=== PATIENT | female | born 1970 ===

== ENCOUNTER 2019-10-17 13:42 | Inpatient (IN) ==
[2019-10-17] MEDS ORDERED: PIPERACILLIN/TAZOBACTAM 3,375 MG in SODIUM CHLORIDE 0.9% 100 ML IV STA (14:24)
[2019-10-17] MEDS ORDERED: ONDANSETRON 4 MG/2 ML VIAL IV PRN (14:31)
[2019-10-17] MEDS ORDERED: GLUCAGON 1 MG VIAL IM PRN (14:34)
[2019-10-17] MEDS ORDERED: DEXTROSE 10% 250 ML BAG IV PRN (14:34)
[2019-10-17] MEDS: INSULIN LISPRO 100 UNIT/ML SUBCUT SCH ×2 (16:30→21:17)
[2019-10-17] MEDS: LACTATED RINGERS 1,000 ML IV SCH (18:28)
[2019-10-17] MEDS: PIPERACILLIN/TAZOBACTAM 3,375 MG in SODIUM CHLORIDE 0.9% 100 ML IV SCH (21:15)
[2019-10-18 06:34] LABS: Basophils % 0.2 % (0.0-0.8); Eosinophils # 0.2 10*3/uL (0.0-0.87); Eosinophils % 1.2 % (0.00-10.9); Hematocrit 34.5 VOL% (35.7-47.0); Immature Granulocytes % 0.8 %; Immature Granulocytes Absolute 0.14 #; Lymphocytes # 1.5 10*3/uL (1.4-4.0); Lymphocytes % 8.6 % (21.3-54.2); Mean Corpuscular HGB Conc 31.9 GM/DL (32-36); Mean Corpuscular Volume 87.1 FL (87-102); Mean Platelet Volume 9.6 FL (9.6-12.0); Monocytes % 7.2 % (1.7-12.7); Platelet Count 374 T/CUMM (130-400); Red Blood Count 3.96 MC/CUMM (3.8-5.5); White Blood Count 17.3 T/CUMM (4-12)
[2019-10-18] MEDS: LACTATED RINGERS 1,000 ML IV SCH ×2 (06:39→16:46)
[2019-10-18] MEDS: PIPERACILLIN/TAZOBACTAM 3,375 MG in SODIUM CHLORIDE 0.9% 100 ML IV SCH ×2 (06:39→17:13)
[2019-10-18] MEDS: INSULIN LISPRO 100 UNIT/ML SUBCUT SCH ×4 (08:29→20:51)
[2019-10-18] MEDS ORDERED: LIDOCAINE 1%/EPI INJ 20 ML VIAL ONE (08:46)
[2019-10-18] MEDS ORDERED: BUPIVACAINE MPF 0.25% 30 ML VIAL ONE (08:46)
[2019-10-18] MEDS ORDERED: TISSUE ADHESIVE 1 EACH APPLICATOR TOP ONE (08:46)
[2019-10-18 09:43] LABS: Calcium 9.5 MG/DL (8.5-10.1); Osmolality,Calculated 272.8 MOS/KG (273-304)
[2019-10-18] MEDS: ENOXAPARIN 40 MG/0.4 ML SYRINGE SUBCUT SCH (12:40)
[2019-10-18] MEDS: PIOGLITAZONE 15 MG TABLET PO SCH (14:25)
[2019-10-18] MEDS ORDERED: SUGAMMADEX 200 MG/2 ML VIAL IV ONE ×2 (15:08→15:09)
[2019-10-18] MEDS ORDERED: ACETAMINOPHEN 1,000 MG/100 ML VIAL IV ONE (15:27)
[2019-10-18] MEDS ORDERED: ONDANSETRON 4 MG/2 ML VIAL ONE (15:34)
[2019-10-18] MEDS ORDERED: HYDROmorphone 2 MG/1 ML VIAL ONE (15:34)
[2019-10-18] MEDS: HYDROmorphone 2 MG/1 ML VIAL IV PRN ×4 (15:35→22:32)
[2019-10-18] MEDS ORDERED: SEVOFLURANE 1 UNIT/15 MINUTE INH ONE (15:41)
[2019-10-18] MEDS ORDERED: PROPOFOL 200 MG/20 ML VIAL IV ONE (15:41)
[2019-10-18] MEDS ORDERED: MIDAZOLAM 2 MG/2 ML VIAL ONE (15:41)
[2019-10-18] MEDS ORDERED: LIDOCAINE 2% 5 ML VIAL ONE (15:41)
[2019-10-18] MEDS ORDERED: fentaNYL 100 MCG/2 ML VIAL ONE (15:42)
[2019-10-18] MEDS ORDERED: SUCCINYLCHOLINE 200 MG/10 ML VIAL ONE (15:42)
[2019-10-18] MEDS ORDERED: ROCURONIUM 100 MG/10 ML VIAL IV ONE (15:42)
[2019-10-18] MEDS ORDERED: LACTATED RINGERS 1,000 ML IV ONE (15:42)
[2019-10-18] MEDS ORDERED: ONDANSETRON 4 MG/2 ML VIAL IV PRN (16:07)
[2019-10-18 16:42] LABS: Hematocrit 32.8 VOL% (35.7-47.0); Hemoglobin 10.4 GM/DL (12.0-16.0)
[2019-10-18] MEDS: ASPIRIN EC 81 MG TABLET PO SCH (17:41)
[2019-10-18] MEDS: LISINOPRIL 20 MG TABLET PO SCH (17:42)
[2019-10-18] MEDS: METOPROLOL SUCCINATE XL 50 MG TABLET PO SCH (17:42)
[2019-10-18] MEDS: CHLORTHALIDONE 25 MG TABLET PO SCH (17:42)
[2019-10-18] MEDS: amLODIPine 10 MG TABLET PO SCH (17:43)
[2019-10-18] MEDS: SIMVASTATIN 10 MG TABLET PO SCH (20:42)
[2019-10-18 23:31] LABS: Hematocrit 33.2 VOL% (35.7-47.0); Hemoglobin 10.4 GM/DL (12.0-16.0)
[2019-10-19] MEDS: PIPERACILLIN/TAZOBACTAM 3,375 MG in SODIUM CHLORIDE 0.9% 100 ML IV SCH ×3 (01:06→18:37)
[2019-10-19] MEDS: HYDROmorphone 2 MG/1 ML VIAL IV PRN (03:28)
[2019-10-19 05:45] LABS: Basophils % 0.2 % (0.0-0.8); Eosinophils % 0.1 % (0.00-10.9); Hematocrit 33.9 VOL% (35.7-47.0); Hemoglobin 10.7 GM/DL (12.0-16.0); Lymphocytes # 1.4 10*3/uL (1.4-4.0); Mean Corpuscular HGB Conc 31.6 GM/DL (32-36); Mean Corpuscular Volume 88.1 FL (87-102); Mean Platelet Volume 9.4 FL (9.6-12.0); Monocytes % 10.4 % (1.7-12.7); Neutrophils % 81.3 % (38.7-73.9); Platelet Count 389 T/CUMM (130-400); Red Blood Count 3.85 MC/CUMM (3.8-5.5); Red Cell Distribution Width 14.2 % (9.3-17.3); White Blood Count 19.7 T/CUMM (4-12)
[2019-10-19 06:24] LABS: Albumin 2.8 G/DL (3.4-5.0); Bilirubin,Total 1.3 MG/DL (0.2-1.0); Calcium 8.8 MG/DL (8.5-10.1); Osmolality,Calculated 274.1 MOS/KG (273-304); Total Protein 7.9 G/DL (6.4-8.3)
[2019-10-19] MEDS: LACTATED RINGERS 1,000 ML IV SCH ×3 (06:26→21:04)
[2019-10-19] MEDS: ENOXAPARIN 40 MG/0.4 ML SYRINGE SUBCUT SCH (09:54)
[2019-10-19] MEDS: PANTOPRAZOLE 40 MG TABLET PO SCH (09:55)
[2019-10-19] MEDS: METOPROLOL SUCCINATE XL 50 MG TABLET PO SCH (09:55)
[2019-10-19] MEDS: PIOGLITAZONE 15 MG TABLET PO SCH (09:55)
[2019-10-19] MEDS: ASPIRIN EC 81 MG TABLET PO SCH (09:55)
[2019-10-19] MEDS: CHLORTHALIDONE 25 MG TABLET PO SCH (09:55)
[2019-10-19] MEDS: amLODIPine 10 MG TABLET PO SCH (10:40)
[2019-10-19] MEDS: INSULIN LISPRO 100 UNIT/ML SUBCUT SCH ×4 (10:40→23:56)
[2019-10-19] MEDS: LISINOPRIL 20 MG TABLET PO SCH (18:37)
[2019-10-19] MEDS: SIMVASTATIN 10 MG TABLET PO SCH (21:04)
[2019-10-20] MEDS: PIPERACILLIN/TAZOBACTAM 3,375 MG in SODIUM CHLORIDE 0.9% 100 ML IV SCH ×2 (00:13→09:56)
[2019-10-20] MEDS: INSULIN LISPRO 100 UNIT/ML SUBCUT SCH ×4 (07:51→23:20)
[2019-10-20] MEDS: PIOGLITAZONE 15 MG TABLET PO SCH (08:42)
[2019-10-20] MEDS: CHLORTHALIDONE 25 MG TABLET PO SCH (08:42)
[2019-10-20] MEDS: ASPIRIN EC 81 MG TABLET PO SCH (08:42)
[2019-10-20] MEDS: LISINOPRIL 20 MG TABLET PO SCH (08:42)
[2019-10-20] MEDS: ENOXAPARIN 40 MG/0.4 ML SYRINGE SUBCUT SCH (08:42)
[2019-10-20] MEDS: METOPROLOL SUCCINATE XL 50 MG TABLET PO SCH (08:43)
[2019-10-20] MEDS: PANTOPRAZOLE 40 MG TABLET PO SCH (08:43)
[2019-10-20] MEDS: amLODIPine 10 MG TABLET PO SCH (08:43)
[2019-10-20] MEDS: HYDROmorphone 2 MG/1 ML VIAL IV PRN (11:03)
[2019-10-20] MEDS: CIPROFLOXACIN INJ 400 MG in PREMIX 1 EACH IV SCH (14:38)
[2019-10-20] MEDS: LACTATED RINGERS 1,000 ML IV SCH (14:38)
[2019-10-20] MEDS: SIMVASTATIN 10 MG TABLET PO SCH (20:34)
[2019-10-21] MEDS: CIPROFLOXACIN INJ 400 MG in PREMIX 1 EACH IV SCH ×2 (01:41→14:00)
[2019-10-21] MEDS: LACTATED RINGERS 1,000 ML IV SCH ×3 (05:50→18:54)
[2019-10-21] MEDS: INSULIN LISPRO 100 UNIT/ML SUBCUT SCH ×4 (07:17→20:53)
[2019-10-21] MEDS: ENOXAPARIN 40 MG/0.4 ML SYRINGE SUBCUT SCH (07:27)
[2019-10-21] MEDS ORDERED: SUGAMMADEX 200 MG/2 ML VIAL IV ONE (09:33)
[2019-10-21] MEDS ORDERED: PROPOFOL 200 MG/20 ML VIAL IV ONE (09:51)
[2019-10-21] MEDS ORDERED: SEVOFLURANE 1 UNIT/15 MINUTE INH ONE (09:51)
[2019-10-21] MEDS ORDERED: LIDOCAINE 2% 5 ML VIAL ONE (09:51)
[2019-10-21] MEDS ORDERED: ROCURONIUM 100 MG/10 ML VIAL IV ONE (09:52)
[2019-10-21] MEDS ORDERED: MIDAZOLAM 2 MG/2 ML VIAL ONE (09:52)
[2019-10-21] MEDS ORDERED: ONDANSETRON 4 MG/2 ML VIAL ONE (09:52)
[2019-10-21] MEDS ORDERED: fentaNYL 100 MCG/2 ML VIAL ONE (09:52)
[2019-10-21] MEDS ORDERED: SUCCINYLCHOLINE 200 MG/10 ML VIAL ONE (09:52)
[2019-10-21] MEDS ORDERED: DEXAMETHASONE 4 MG/1 ML VIAL ONE (09:52)
[2019-10-21] MEDS ORDERED: HYDROmorphone 2 MG/1 ML VIAL IV PRN (10:10)
[2019-10-21] MEDS ORDERED: ONDANSETRON 4 MG/2 ML VIAL IV PRN (10:10)
[2019-10-21] MEDS: PIOGLITAZONE 15 MG TABLET PO SCH (11:21)
[2019-10-21] MEDS: amLODIPine 10 MG TABLET PO SCH (11:21)
[2019-10-21] MEDS: ASPIRIN EC 81 MG TABLET PO SCH (11:21)
[2019-10-21] MEDS: LISINOPRIL 20 MG TABLET PO SCH (11:21)
[2019-10-21] MEDS: METOPROLOL SUCCINATE XL 50 MG TABLET PO SCH (11:22)
[2019-10-21] MEDS: CHLORTHALIDONE 25 MG TABLET PO SCH (11:22)
[2019-10-21] MEDS: PANTOPRAZOLE 40 MG TABLET PO SCH (11:22)
[2019-10-21] MEDS: SIMVASTATIN 10 MG TABLET PO SCH (20:54)
[2019-10-22] MEDS: CIPROFLOXACIN INJ 400 MG in PREMIX 1 EACH IV SCH (03:08)
[2019-10-22] MEDS: LACTATED RINGERS 1,000 ML IV SCH ×2 (07:34→11:05)
[2019-10-22] MEDS: INSULIN LISPRO 100 UNIT/ML SUBCUT SCH ×2 (09:31→13:10)
[2019-10-22] MEDS: amLODIPine 10 MG TABLET PO SCH (09:32)
[2019-10-22] MEDS: METOPROLOL SUCCINATE XL 50 MG TABLET PO SCH (09:32)
[2019-10-22] MEDS: ENOXAPARIN 40 MG/0.4 ML SYRINGE SUBCUT SCH (09:32)
[2019-10-22] MEDS: PIOGLITAZONE 15 MG TABLET PO SCH (09:32)
[2019-10-22] MEDS: CHLORTHALIDONE 25 MG TABLET PO SCH (09:32)
[2019-10-22] MEDS: PANTOPRAZOLE 40 MG TABLET PO SCH (09:32)
[2019-10-22] MEDS: ASPIRIN EC 81 MG TABLET PO SCH (09:32)
[2019-10-22 12:10] VITALS: BP 107/44
[2019-10-22] MEDS: LISINOPRIL 20 MG TABLET PO SCH (13:10)
== END 2019-10-22 14:02 | disposition home or self-care (01) | DRG 415 ==
LOC: EDBD → EDUNIT# → N.ED 13:42 → INTOOBSV 14:31 → N.EDINP 14:31 → N.3E 16:01
PROVIDERS: ADMIT Surgery; ATTEND Surgery
PROC: LAPCHOL (2019-10-18 13:14)

== ENCOUNTER 2019-11-18 03:19 | Inpatient (IN) ==
[2019-11-18] MEDS ORDERED: MORPHINE 4 MG/1 ML VIAL IV PRN (09:02)
[2019-11-18] MEDS ORDERED: ONDANSETRON 4 MG/2 ML VIAL IV PRN (09:02)
[2019-11-18] MEDS ORDERED: MAGNESIUM SULF RIDER 4 GM in PREMIX 1 EACH IV PRN (09:02)
[2019-11-18] MEDS ORDERED: POTASSIUM CHLORIDE RIDER 10 MEQ in PREMIX 1 EACH IV PRN (09:02)
[2019-11-18] MEDS ORDERED: MAGNESIUM SULF RIDER 2 GM in PREMIX 1 EACH IV PRN (09:02)
[2019-11-18] MEDS ORDERED: hydrALAZINE 20 MG/1 ML VIAL IV PRN (09:08)
[2019-11-18] MEDS ORDERED: DEXTROSE 50% 25 GM/50 ML VIAL IV PRN (09:35)
[2019-11-18] MEDS ORDERED: GLUCAGON 1 MG VIAL IM PRN (09:35)
[2019-11-18 09:52] LABS: Basophils % 0.3 % (0.0-0.8); Eosinophils # 0.4 10*3/uL (0.0-0.87); Eosinophils % 2.4 % (0.00-10.9); Hematocrit 34.4 VOL% (35.7-47.0); Hemoglobin 10.8 GM/DL (12.0-16.0); Immature Granulocytes % 1.1 %; Immature Granulocytes Absolute 0.17 #; Lymphocytes # 2.1 10*3/uL (1.4-4.0); Lymphocytes % 13.1 % (21.3-54.2); Mean Corpuscular HGB Conc 31.4 GM/DL (32-36); Mean Corpuscular Volume 87.1 FL (87-102); Mean Platelet Volume 9.2 FL (9.6-12.0); Monocytes % 6.7 % (1.7-12.7); Neutrophils % 76.4 % (38.7-73.9); Platelet Count 352 T/CUMM (130-400); Red Blood Count 3.95 MC/CUMM (3.8-5.5); Red Cell Distribution Width 14.8 % (9.3-17.3); White Blood Count 15.6 T/CUMM (4-12)
[2019-11-18 10:12] LABS: Bilirubin,Total 0.4 MG/DL (0.2-1.0); Calcium 8.6 MG/DL (8.5-10.1); Osmolality,Calculated 276.2 MOS/KG (273-304); Total Protein 7.8 G/DL (6.4-8.3)
[2019-11-18 10:13] LABS: Risk Ratio 2.47; VLDL CHOLESTEROL 24.6 MG/DL
[2019-11-18] MEDS: SODIUM CHLORIDE 0.9% 1,000 ML IV SCH ×2 (10:17→21:24)
[2019-11-18] MEDS: CIPROFLOXACIN INJ 400 MG in PREMIX 1 EACH IV SCH ×2 (10:20→21:22)
[2019-11-18] MEDS: metroNIDAZOLE INJ 500 MG in PREMIX 1 EACH IV SCH ×2 (12:36→17:35)
[2019-11-18] MEDS: INSULIN REGULAR 100 UNIT/ML SUBCUT SCH ×2 (14:00→17:35)
[2019-11-18] MEDS: HEPARIN 5,000 UNIT/1 ML VIAL SUBCUT SCH ×2 (14:48→21:23)
[2019-11-18 19:46] LABS: Apearance,Urine CLOUDY (Clear); Bacteria,Urine Occasional /HPF (Few); Bilirubin,Urine Negative (Negative); Blood, Urine Negative (Negative); Glucose,Urine (UA) Negative (Negative); Hyaline Casts,Urine 9 /LPF (0-3); Ketones,Urine Negative (Negative); Mucus,Urine Occasional /LPF (Occasional); Nitrite,Urine Negative (Negative); Protein,Urine Negative; RBC,Urine 3 /HPF (0-4); Squamous Epithelial Cell,Urine Few /HPF (0-10); Urine Color Yellow (Yellow); Urine Specific Gravity 1.014 (1.001-1.035); Urine Urobilinogen < 2.0 EU/DL (0.2-1.0); WBC,Urine 12 /HPF (0-6)
[2019-11-19] MEDS: metroNIDAZOLE INJ 500 MG in PREMIX 1 EACH IV SCH ×2 (00:51→05:56)
[2019-11-19] MEDS: INSULIN REGULAR 100 UNIT/ML SUBCUT SCH ×5 (00:53→23:22)
[2019-11-19 05:33] LABS: Basophils % 0.1 % (0.0-0.8); Eosinophils # 1.6 10*3/uL (0.0-0.87); Eosinophils % 9.7 % (0.00-10.9); Hematocrit 31.5 VOL% (35.7-47.0); Hemoglobin 9.8 GM/DL (12.0-16.0); Immature Granulocytes % 1.1 %; Immature Granulocytes Absolute 0.18 #; Lymphocytes # 0.6 10*3/uL (1.4-4.0); Lymphocytes % 3.4 % (21.3-54.2); Mean Corpuscular HGB Conc 31.1 GM/DL (32-36); Mean Corpuscular Volume 86.5 FL (87-102); Mean Platelet Volume 9.8 FL (9.6-12.0); Monocytes % 3.3 % (1.7-12.7); Neutrophils % 82.4 % (38.7-73.9); Platelet Count 318 T/CUMM (130-400); Red Blood Count 3.64 MC/CUMM (3.8-5.5); Red Cell Distribution Width 14.8 % (9.3-17.3); White Blood Count 16.5 T/CUMM (4-12)
[2019-11-19] MEDS ORDERED: GLUCOSE GEL 15 GM TUBE PO ONE (05:48)
[2019-11-19] MEDS: HEPARIN 5,000 UNIT/1 ML VIAL SUBCUT SCH ×3 (06:03→21:34)
[2019-11-19 06:07] LABS: Albumin 2.8 G/DL (3.4-5.0); Bilirubin,Total 0.4 MG/DL (0.2-1.0); Calcium 8.1 MG/DL (8.5-10.1); Osmolality,Calculated 279.1 MOS/KG (273-304); Total Protein 7.2 G/DL (6.4-8.3)
[2019-11-19 06:13] LABS: Eosinophils 11 % (0-10); Hypochromasia Slight; Lymphocytes 2 % (20-55); Platelet Estimate Adequate; Segmented Neutrophils 87 % (50-85); Total Cells Counted 100
[2019-11-19] MEDS ORDERED: SODIUM PHOSPHATE INJ 30 MMOL in SODIUM CHLORIDE 0.9% 250 ML IV ONE (06:53)
[2019-11-19] MEDS: PANTOPRAZOLE 40 MG VIAL IV SCH (08:47)
[2019-11-19] MEDS: VANCOMYCIN 50 MG/ML 60 ML/BOTTLE PO SCH ×4 (08:49→23:20)
[2019-11-19] MEDS: CIPROFLOXACIN INJ 400 MG in PREMIX 1 EACH IV SCH (10:17)
[2019-11-19] MEDS: SODIUM CHLORIDE 0.9% 1,000 ML IV SCH ×2 (19:14→20:34)
[2019-11-19] MEDS ORDERED: DEXTROSE 10% 250 ML IV ONE (23:17)
[2019-11-19] MEDS ORDERED: DEXTROSE 10% 250 ML BAG IV PRN (23:21)
[2019-11-20 05:49] LABS: Basophils % 0.2 % (0.0-0.8); Eosinophils # 2.4 10*3/uL (0.0-0.87); Eosinophils % 24.5 % (0.00-10.9); Hematocrit 32.2 VOL% (35.7-47.0); Hemoglobin 9.9 GM/DL (12.0-16.0); Immature Granulocytes % 0.8 %; Immature Granulocytes Absolute 0.08 #; Lymphocytes # 1.1 10*3/uL (1.4-4.0); Lymphocytes % 11.7 % (21.3-54.2); Mean Corpuscular HGB Conc 30.7 GM/DL (32-36); Mean Corpuscular Volume 89.4 FL (87-102); Mean Platelet Volume 9.9 FL (9.6-12.0); Monocytes % 6.1 % (1.7-12.7); Neutrophils % 56.7 % (38.7-73.9); Platelet Count 276 T/CUMM (130-400); Red Cell Distribution Width 14.9 % (9.3-17.3); White Blood Count 9.6 T/CUMM (4-12)
[2019-11-20] MEDS: HEPARIN 5,000 UNIT/1 ML VIAL SUBCUT SCH (06:10)
[2019-11-20] MEDS: VANCOMYCIN 50 MG/ML 60 ML/BOTTLE PO SCH ×2 (06:11→12:07)
[2019-11-20 06:22] LABS: Albumin 2.7 G/DL (3.4-5.0); Bilirubin,Total 0.5 MG/DL (0.2-1.0); Calcium 8.6 MG/DL (8.5-10.1); Total Protein 7.2 G/DL (6.4-8.3)
[2019-11-20] MEDS: INSULIN REGULAR 100 UNIT/ML SUBCUT SCH ×2 (06:28→12:07)
[2019-11-20 06:41] LABS: Eosinophils 15 % (0-10); Hypochromasia 1+; Lymphocytes 6 % (20-55); Microcytosis 1+; Platelet Estimate Normal; Polychromasia Few; Segmented Neutrophils 77 % (50-85); Total Cells Counted 100
[2019-11-20] MEDS: PANTOPRAZOLE 40 MG VIAL IV SCH (08:46)
[2019-11-20] MEDS: SODIUM CHLORIDE 0.9% 1,000 ML IV SCH (10:07)
[2019-11-20 11:56] VITALS: BP 113/64
== END 2019-11-20 15:18 | disposition home or self-care (01) | DRG 372 ==
LOC: INTOOBSV 05:35 → N.5E 05:35 → SUATTDRO 05:35
PROVIDERS: ADMIT Emergency Medicine; ATTEND Internal Medicine

== ENCOUNTER 2020-04-25 09:12 | Inpatient (IN) ==
[2020-04-25] MEDS ORDERED: ONDANSETRON 4 MG/2 ML VIAL IV PRN (12:07)
[2020-04-25] MEDS ORDERED: DEXTROSE 10% 250 ML BAG IV PRN (12:07)
[2020-04-25] MEDS ORDERED: GLUCAGON 1 MG VIAL IM PRN (12:07)
[2020-04-25] MEDS ORDERED: ZINC GLUCONATE 50 MG TABLET PO ONE (18:34)
[2020-04-25] MEDS: ACETAMINOPHEN 325 MG TABLET PO PRN (20:40)
[2020-04-25] MEDS: SIMVASTATIN 10 MG TABLET PO SCH (20:40)
[2020-04-25] MEDS: ENOXAPARIN 80 MG/0.8 ML SYRINGE SUBCUT SCH (20:40)
[2020-04-25] MEDS: DOCUSATE/SENNA 50-8.6 MG TABLET PO SCH (20:40)
[2020-04-25] MEDS: ASCORBIC ACID 500 MG TABLET PO SCH (21:30)
[2020-04-26 05:36] LABS: Basophils % 0.1 % (0.0-0.8); Eosinophils # 0.4 10*3/uL (0.0-0.87); Eosinophils % 3.8 % (0.00-10.9); Hematocrit 31.3 VOL% (35.7-47.0); Hemoglobin 9.9 GM/DL (12.0-16.0); Immature Granulocytes % 1.1 %; Immature Granulocytes Absolute 0.11 #; Lymphocytes # 0.6 10*3/uL (1.4-4.0); Lymphocytes % 5.9 % (21.3-54.2); Mean Corpuscular HGB Conc 31.6 GM/DL (32-36); Mean Corpuscular Volume 85.5 FL (87-102); Mean Platelet Volume 9.2 FL (9.6-12.0); Monocytes % 4.7 % (1.7-12.7); NRBC # 0.02 10*3/uL; Neutrophils % 84.4 % (38.7-73.9); Platelet Count 378 T/CUMM (130-400); Red Blood Count 3.66 MC/CUMM (3.8-5.5); Red Cell Distribution Width 14.6 % (9.3-17.3); White Blood Count 10.4 T/CUMM (4-12)
[2020-04-26 06:23] LABS: Albumin 2.4 G/DL (3.4-5.0); Bilirubin,Total 1.4 MG/DL (0.2-1.0); Calcium 8.2 MG/DL (8.5-10.1); Osmolality,Calculated 258.2 MOS/KG (273-304); Total Protein 6.5 G/DL (6.4-8.3)
[2020-04-26] MEDS: ASPIRIN EC 81 MG TABLET PO SCH (09:37)
[2020-04-26] MEDS: ENOXAPARIN 80 MG/0.8 ML SYRINGE SUBCUT SCH ×2 (09:38→21:20)
[2020-04-26] MEDS: NICOTINE 14 MG/24 HR PATCH TRANSDERM SCH (09:38)
[2020-04-26] MEDS: CHLORTHALIDONE 25 MG TABLET PO SCH (09:39)
[2020-04-26] MEDS: amLODIPine 10 MG TABLET PO SCH (09:40)
[2020-04-26] MEDS: DOCUSATE/SENNA 50-8.6 MG TABLET PO SCH ×2 (09:40→21:20)
[2020-04-26] MEDS: METOPROLOL SUCCINATE XL 50 MG TABLET PO SCH (09:40)
[2020-04-26] MEDS: PANTOPRAZOLE 40 MG TABLET PO SCH (09:40)
[2020-04-26] MEDS: lisinopriL 20 MG TABLET PO SCH (09:40)
[2020-04-26] MEDS: ASCORBIC ACID 500 MG TABLET PO SCH ×2 (09:40→21:20)
[2020-04-26] MEDS: SIMVASTATIN 10 MG TABLET PO SCH (21:20)
[2020-04-27] MEDS: ALBUTEROL INHALER 18 GM INH SCH ×4 (01:10→20:38)
[2020-04-27 07:06] LABS: Basophils % 0.1 % (0.0-0.8); Eosinophils # 0.6 10*3/uL (0.0-0.87); Eosinophils % 6.5 % (0.00-10.9); Hemoglobin 9.3 GM/DL (12.0-16.0); Immature Granulocytes % 1.7 %; Immature Granulocytes Absolute 0.16 #; Lymphocytes # 0.8 10*3/uL (1.4-4.0); Mean Corpuscular HGB Conc 32.1 GM/DL (32-36); Mean Corpuscular Volume 84.8 FL (87-102); Mean Platelet Volume 9.2 FL (9.6-12.0); Monocytes % 6.3 % (1.7-12.7); Neutrophils % 77.4 % (38.7-73.9); Platelet Count 402 T/CUMM (130-400); Red Blood Count 3.42 MC/CUMM (3.8-5.5); Red Cell Distribution Width 14.6 % (9.3-17.3); White Blood Count 9.4 T/CUMM (4-12)
[2020-04-27 07:23] LABS: Albumin 2.1 G/DL (3.4-5.0); Bilirubin,Total 1.6 MG/DL (0.2-1.0); Calcium 8.8 MG/DL (8.5-10.1); Osmolality,Calculated 259.1 MOS/KG (273-304)
[2020-04-27 07:34] LABS: Ferritin 286.6 ng/ml (8-252)
[2020-04-27] MEDS: CHLORTHALIDONE 25 MG TABLET PO SCH (09:26)
[2020-04-27] MEDS: DOCUSATE/SENNA 50-8.6 MG TABLET PO SCH ×2 (09:26→20:38)
[2020-04-27] MEDS: ASPIRIN EC 81 MG TABLET PO SCH (09:26)
[2020-04-27] MEDS: ASCORBIC ACID 500 MG TABLET PO SCH ×2 (09:26→20:38)
[2020-04-27] MEDS: amLODIPine 10 MG TABLET PO SCH (09:26)
[2020-04-27] MEDS: ENOXAPARIN 80 MG/0.8 ML SYRINGE SUBCUT SCH ×2 (09:26→20:38)
[2020-04-27] MEDS: ZINC GLUCONATE 50 MG TABLET PO SCH (09:26)
[2020-04-27] MEDS: PANTOPRAZOLE 40 MG TABLET PO SCH (09:26)
[2020-04-27] MEDS: METOPROLOL SUCCINATE XL 50 MG TABLET PO SCH (09:26)
[2020-04-27] MEDS: NICOTINE 14 MG/24 HR PATCH TRANSDERM SCH (09:42)
[2020-04-27] MEDS: lisinopriL 20 MG TABLET PO SCH (09:42)
[2020-04-27] MEDS: SIMVASTATIN 10 MG TABLET PO SCH (20:39)
[2020-04-28] MEDS: ALBUTEROL INHALER 18 GM INH SCH ×4 (00:25→21:45)
[2020-04-28 06:00] LABS: Basophils % 0.2 % (0.0-0.8); Eosinophils # 0.7 10*3/uL (0.0-0.87); Eosinophils % 6.9 % (0.00-10.9); Hematocrit 28.3 VOL% (35.7-47.0); Hemoglobin 9.1 GM/DL (12.0-16.0); Immature Granulocytes % 1.6 %; Immature Granulocytes Absolute 0.16 #; Lymphocytes # 0.7 10*3/uL (1.4-4.0); Lymphocytes % 6.5 % (21.3-54.2); Mean Corpuscular HGB Conc 32.2 GM/DL (32-36); Mean Corpuscular Volume 83.5 FL (87-102); Monocytes % 6.8 % (1.7-12.7); Platelet Count 427 T/CUMM (130-400); Red Blood Count 3.39 MC/CUMM (3.8-5.5); Red Cell Distribution Width 14.6 % (9.3-17.3); White Blood Count 10.1 T/CUMM (4-12)
[2020-04-28 06:35] LABS: Albumin 2.1 G/DL (3.4-5.0); Calcium 8.2 MG/DL (8.5-10.1); Osmolality,Calculated 253.5 MOS/KG (273-304); Total Protein 6.2 G/DL (6.4-8.3)
[2020-04-28 06:42] LABS: Ferritin 263.7 ng/ml (8-252)
[2020-04-28] MEDS: ASPIRIN EC 81 MG TABLET PO SCH (09:25)
[2020-04-28] MEDS: METOPROLOL SUCCINATE XL 50 MG TABLET PO SCH (09:25)
[2020-04-28] MEDS: amLODIPine 10 MG TABLET PO SCH (09:25)
[2020-04-28] MEDS: CHLORTHALIDONE 25 MG TABLET PO SCH (09:25)
[2020-04-28] MEDS: ASCORBIC ACID 500 MG TABLET PO SCH ×2 (09:25→21:45)
[2020-04-28] MEDS: lisinopriL 20 MG TABLET PO SCH (09:25)
[2020-04-28] MEDS: PANTOPRAZOLE 40 MG TABLET PO SCH (09:25)
[2020-04-28] MEDS: DOCUSATE/SENNA 50-8.6 MG TABLET PO SCH ×2 (09:25→21:45)
[2020-04-28] MEDS: ENOXAPARIN 80 MG/0.8 ML SYRINGE SUBCUT SCH ×2 (09:25→21:45)
[2020-04-28] MEDS: NICOTINE 14 MG/24 HR PATCH TRANSDERM SCH (10:30)
[2020-04-28] MEDS ORDERED: REMDESIVIR 200 MG in SODIUM CHLORIDE 0.9% 210 ML IV ONE (15:00)
[2020-04-28] MEDS: SIMVASTATIN 10 MG TABLET PO SCH (21:45)
[2020-04-29] MEDS: ALBUTEROL INHALER 18 GM INH SCH ×4 (01:38→21:20)
[2020-04-29 06:13] LABS: Basophils % 0.2 % (0.0-0.8); Eosinophils # 0.5 10*3/uL (0.0-0.87); Eosinophils % 4.6 % (0.00-10.9); Hematocrit 28.8 VOL% (35.7-47.0); Immature Granulocytes Absolute 0.24 #; Lymphocytes # 0.8 10*3/uL (1.4-4.0); Lymphocytes % 6.7 % (21.3-54.2); Mean Corpuscular HGB Conc 31.3 GM/DL (32-36); Mean Corpuscular Volume 86.2 FL (87-102); Mean Platelet Volume 8.9 FL (9.6-12.0); Monocytes % 7.6 % (1.7-12.7); Neutrophils % 78.9 % (38.7-73.9); Platelet Count 484 T/CUMM (130-400); Red Blood Count 3.34 MC/CUMM (3.8-5.5); Red Cell Distribution Width 14.5 % (9.3-17.3); White Blood Count 11.9 T/CUMM (4-12)
[2020-04-29 06:34] LABS: Calcium 8.6 MG/DL (8.5-10.1); Osmolality,Calculated 253.5 MOS/KG (273-304)
[2020-04-29 06:41] LABS: Ferritin 238.3 ng/ml (8-252)
[2020-04-29] MEDS: ASCORBIC ACID 500 MG TABLET PO SCH ×2 (09:36→21:22)
[2020-04-29] MEDS: DOCUSATE/SENNA 50-8.6 MG TABLET PO SCH ×2 (09:36→21:22)
[2020-04-29] MEDS: ZINC GLUCONATE 50 MG TABLET PO SCH (09:36)
[2020-04-29] MEDS: METOPROLOL SUCCINATE XL 50 MG TABLET PO SCH (09:36)
[2020-04-29] MEDS: NICOTINE 14 MG/24 HR PATCH TRANSDERM SCH (09:36)
[2020-04-29] MEDS: lisinopriL 20 MG TABLET PO SCH (09:36)
[2020-04-29] MEDS: amLODIPine 10 MG TABLET PO SCH (09:37)
[2020-04-29] MEDS: ASPIRIN EC 81 MG TABLET PO SCH (09:37)
[2020-04-29] MEDS: CHLORTHALIDONE 25 MG TABLET PO SCH (09:37)
[2020-04-29] MEDS: PANTOPRAZOLE 40 MG TABLET PO SCH (09:37)
[2020-04-29] MEDS: ENOXAPARIN 80 MG/0.8 ML SYRINGE SUBCUT SCH ×2 (09:39→21:25)
[2020-04-29] MEDS: REMDESIVIR 100 MG in SODIUM CHLORIDE 0.9% 230 ML IV SCH (16:25)
[2020-04-29] MEDS: SIMVASTATIN 10 MG TABLET PO SCH (21:22)
[2020-04-30] MEDS: ALBUTEROL INHALER 18 GM INH SCH ×4 (00:50→21:13)
[2020-04-30 06:22] LABS: Basophils % 0.2 % (0.0-0.8); Eosinophils # 0.4 10*3/uL (0.0-0.87); Hematocrit 27.6 VOL% (35.7-47.0); Hemoglobin 8.6 GM/DL (12.0-16.0); Immature Granulocytes Absolute 0.39 #; Lymphocytes % 7.8 % (21.3-54.2); Mean Corpuscular HGB Conc 31.2 GM/DL (32-36); Mean Platelet Volume 8.7 FL (9.6-12.0); Monocytes % 8.3 % (1.7-12.7); NRBC # 0.02 10*3/uL; Neutrophils % 77.7 % (38.7-73.9); Platelet Count 508 T/CUMM (130-400); Red Blood Count 3.21 MC/CUMM (3.8-5.5); Red Cell Distribution Width 14.5 % (9.3-17.3); White Blood Count 13.2 T/CUMM (4-12)
[2020-04-30 06:53] LABS: Calcium 8.3 MG/DL (8.5-10.1); Osmolality,Calculated 255.5 MOS/KG (273-304)
[2020-04-30 06:57] LABS: Ferritin 229.7 ng/ml (8-252)
[2020-04-30] MEDS: amLODIPine 10 MG TABLET PO SCH (08:20)
[2020-04-30] MEDS: DOCUSATE/SENNA 50-8.6 MG TABLET PO SCH ×2 (08:20→21:14)
[2020-04-30] MEDS: CHLORTHALIDONE 25 MG TABLET PO SCH (08:20)
[2020-04-30] MEDS: PANTOPRAZOLE 40 MG TABLET PO SCH (08:20)
[2020-04-30] MEDS: ASCORBIC ACID 500 MG TABLET PO SCH ×2 (08:20→21:14)
[2020-04-30] MEDS: ENOXAPARIN 80 MG/0.8 ML SYRINGE SUBCUT SCH ×2 (08:20→21:13)
[2020-04-30] MEDS: lisinopriL 20 MG TABLET PO SCH (08:20)
[2020-04-30] MEDS: ASPIRIN EC 81 MG TABLET PO SCH (08:20)
[2020-04-30] MEDS: METOPROLOL SUCCINATE XL 50 MG TABLET PO SCH (08:20)
[2020-04-30] MEDS: NICOTINE 14 MG/24 HR PATCH TRANSDERM SCH (08:59)
[2020-04-30] MEDS: ACETAMINOPHEN 325 MG TABLET PO PRN (13:05)
[2020-04-30] MEDS: REMDESIVIR 100 MG in SODIUM CHLORIDE 0.9% 230 ML IV SCH (16:44)
[2020-04-30] MEDS: guaiFENesin 200 MG/10 ML UDCUP PO PRN (21:14)
[2020-04-30] MEDS: SIMVASTATIN 10 MG TABLET PO SCH (21:14)
[2020-05-01] MEDS: ALBUTEROL INHALER 18 GM INH SCH ×4 (01:09→18:32)
[2020-05-01] MEDS: ACETAMINOPHEN 325 MG TABLET PO PRN ×2 (01:09→11:23)
[2020-05-01 05:57] LABS: Basophils % 0.2 % (0.0-0.8); Eosinophils # 0.4 10*3/uL (0.0-0.87); Eosinophils % 2.8 % (0.00-10.9); Hemoglobin 8.8 GM/DL (12.0-16.0); Immature Granulocytes % 5.2 %; Immature Granulocytes Absolute 0.79 #; Lymphocytes # 1.2 10*3/uL (1.4-4.0); Lymphocytes % 7.7 % (21.3-54.2); Mean Corpuscular HGB Conc 32.6 GM/DL (32-36); Mean Corpuscular Volume 84.6 FL (87-102); Mean Platelet Volume 8.5 FL (9.6-12.0); Monocytes % 8.3 % (1.7-12.7); Neutrophils % 75.8 % (38.7-73.9); Platelet Count 488 T/CUMM (130-400); Red Blood Count 3.19 MC/CUMM (3.8-5.5); Red Cell Distribution Width 14.6 % (9.3-17.3); White Blood Count 15.1 T/CUMM (4-12)
[2020-05-01 06:11] LABS: Calcium 8.3 MG/DL (8.5-10.1); Osmolality,Calculated 249.1 MOS/KG (273-304)
[2020-05-01 06:14] LABS: Ferritin 240.4 ng/ml (8-252)
[2020-05-01] MEDS ORDERED: SODIUM CHLORIDE 0.9% 1,000 ML IV SCH (07:30)
[2020-05-01 07:59] LABS: Anisocytosis 1+; Band Neutrophils 3 % (0-10); Eosinophils 5 % (0-10); Lymphocytes 4 % (20-55); Metamyelocytes 2 %; Nucleated Red Blood Cells 1 (0-5); Platelet Estimate Normal; Segmented Neutrophils 76 % (50-85); Total Cells Counted 100
[2020-05-01] MEDS: ENOXAPARIN 80 MG/0.8 ML SYRINGE SUBCUT SCH ×2 (09:27→21:39)
[2020-05-01] MEDS: amLODIPine 10 MG TABLET PO SCH (09:27)
[2020-05-01] MEDS: METOPROLOL SUCCINATE XL 50 MG TABLET PO SCH (09:27)
[2020-05-01] MEDS: lisinopriL 20 MG TABLET PO SCH (09:28)
[2020-05-01] MEDS: ASCORBIC ACID 500 MG TABLET PO SCH ×2 (09:28→21:39)
[2020-05-01] MEDS: DOCUSATE/SENNA 50-8.6 MG TABLET PO SCH ×2 (09:28→21:39)
[2020-05-01] MEDS: PANTOPRAZOLE 40 MG TABLET PO SCH (09:28)
[2020-05-01] MEDS: ASPIRIN EC 81 MG TABLET PO SCH (09:28)
[2020-05-01] MEDS: NICOTINE 14 MG/24 HR PATCH TRANSDERM SCH (09:28)
[2020-05-01] MEDS: REMDESIVIR 100 MG in SODIUM CHLORIDE 0.9% 230 ML IV SCH (16:18)
[2020-05-01] MEDS: SIMVASTATIN 10 MG TABLET PO SCH (21:39)
[2020-05-01] MEDS: guaiFENesin 200 MG/10 ML UDCUP PO PRN (21:40)
[2020-05-02] MEDS: ACETAMINOPHEN 325 MG TABLET PO PRN (01:00)
[2020-05-02] MEDS: ALBUTEROL INHALER 18 GM INH SCH ×4 (01:00→19:17)
[2020-05-02 07:01] LABS: Ferritin 274.5 ng/ml (8-252)
[2020-05-02] MEDS: lisinopriL 20 MG TABLET PO SCH (08:30)
[2020-05-02] MEDS: ASCORBIC ACID 500 MG TABLET PO SCH ×2 (08:32→20:32)
[2020-05-02] MEDS: ASPIRIN EC 81 MG TABLET PO SCH (08:32)
[2020-05-02] MEDS: DOCUSATE/SENNA 50-8.6 MG TABLET PO SCH ×2 (08:32→20:33)
[2020-05-02] MEDS: PANTOPRAZOLE 40 MG TABLET PO SCH (08:32)
[2020-05-02] MEDS: METOPROLOL SUCCINATE XL 50 MG TABLET PO SCH (08:33)
[2020-05-02] MEDS: amLODIPine 10 MG TABLET PO SCH (08:33)
[2020-05-02] MEDS: NICOTINE 14 MG/24 HR PATCH TRANSDERM SCH (08:33)
[2020-05-02] MEDS: ENOXAPARIN 80 MG/0.8 ML SYRINGE SUBCUT SCH ×2 (08:34→20:32)
[2020-05-02] MEDS ORDERED: ASPIRIN 325 MG TABLET ONE (11:45)
[2020-05-02] MEDS: REMDESIVIR 100 MG in SODIUM CHLORIDE 0.9% 230 ML IV SCH (16:12)
[2020-05-02] MEDS: guaiFENesin 200 MG/10 ML UDCUP PO PRN (20:33)
[2020-05-02] MEDS: SIMVASTATIN 10 MG TABLET PO SCH (20:33)
[2020-05-03 01:13] LABS: ABG Base Excess 1.2 MMOL/L (-2.5-2.5); ABG HCO3 25.4 MMOL/L (20-26); ABG Oxygen Saturation 88.7 % (95-100); ABG PH 7.267 (7.35-7.45); ABG PO2 60.9 MM HG (80-95); ABG TCO2 27.5 MMOL/L (23-27); Allen Test Positive; Pt O2 Delivery Device Other
[2020-05-03] MEDS: ALBUTEROL INHALER 18 GM INH SCH ×4 (01:22→20:47)
[2020-05-03] MEDS ORDERED: ETOMIDATE 20 MG/10 ML VIAL IV ONE ×2 (04:48→05:00)
[2020-05-03] MEDS ORDERED: SUCCINYLCHOLINE 200 MG/10 ML VIAL ONE (04:49)
[2020-05-03] MEDS ORDERED: ROCURONIUM 100 MG/10 ML VIAL IV ONE ×2 (04:49→05:01)
[2020-05-03] MEDS ORDERED: propofoL 200 MG/20 ML VIAL IV ONE (05:01)
[2020-05-03] MEDS ORDERED: ATROPINE 1 MG/10 ML SYRINGE ONE (05:03)
[2020-05-03] MEDS ORDERED: NOREPINEPHRINE 8 MG in SODIUM CHLORIDE 0.9% 242 ML IV PRN (05:13)
[2020-05-03] MEDS: ROCURONIUM 500 MG in SODIUM CHLORIDE 0.9% 500 ML IV PRN ×2 (07:00→20:26)
[2020-05-03 07:42] LABS: ABG Base Excess 0.9 MMOL/L (-2.5-2.5); ABG HCO3 25.2 MMOL/L (20-26); ABG Oxygen Saturation 95.9 % (95-100); ABG PCO2 67.9 MM HG (35-48); ABG PH 7.245 (7.35-7.45); ABG PO2 84.4 MM HG (80-95); ABG TCO2 27.8 MMOL/L (23-27); Pt O2 Delivery Device Ventilator
[2020-05-03] MEDS: methylPREDNISolone SOD SUC 125 MG/2 ML VIAL IV SCH ×2 (08:40→20:47)
[2020-05-03] MEDS: NICOTINE 14 MG/24 HR PATCH TRANSDERM SCH (08:41)
[2020-05-03] MEDS: METOPROLOL TARTRATE 25 MG TABLET NG SCH ×2 (08:41→20:46)
[2020-05-03] MEDS: amLODIPine 10 MG TABLET PO SCH (08:41)
[2020-05-03] MEDS: ENOXAPARIN 150 MG/ML SYRINGE SUBCUT SCH ×2 (08:41→20:46)
[2020-05-03] MEDS: ASCORBIC ACID 500 MG TABLET PO SCH ×2 (08:42→20:46)
[2020-05-03] MEDS: PANTOPRAZOLE 40 MG VIAL IV SCH (08:42)
[2020-05-03] MEDS: lisinopriL 20 MG TABLET PO SCH (08:42)
[2020-05-03] MEDS: DOCUSATE/SENNA 50-8.6 MG TABLET PO SCH ×2 (08:42→20:46)
[2020-05-03] MEDS: ASPIRIN CHEW 81 MG TABLET PO SCH (08:45)
[2020-05-03 09:20] LABS: Basophils % 0.1 % (0.0-0.8); Eosinophils # 0.1 10*3/uL (0.0-0.87); Eosinophils % 0.3 % (0.00-10.9); Hematocrit 27.1 VOL% (35.7-47.0); Hemoglobin 8.2 GM/DL (12.0-16.0); Immature Granulocytes % 5.3 %; Immature Granulocytes Absolute 1.12 #; Lymphocytes # 1.1 10*3/uL (1.4-4.0); Mean Corpuscular HGB Conc 30.3 GM/DL (32-36); Mean Corpuscular Volume 87.4 FL (87-102); Mean Platelet Volume 8.4 FL (9.6-12.0); Monocytes % 7.8 % (1.7-12.7); NRBC # 0.02 10*3/uL; Neutrophils % 81.5 % (38.7-73.9); Platelet Count 592 T/CUMM (130-400); Red Cell Distribution Width 14.4 % (9.3-17.3); White Blood Count 21.3 T/CUMM (4-12)
[2020-05-03 09:41] LABS: Albumin 1.7 G/DL (3.4-5.0); Bilirubin,Total 0.8 MG/DL (0.2-1.0); Calcium 8.3 MG/DL (8.5-10.1); Osmolality,Calculated 249.2 MOS/KG (273-304); Total Protein 6.9 G/DL (6.4-8.3)
[2020-05-03 09:42] LABS: Ferritin 309.5 ng/ml (8-252)
[2020-05-03 09:51] LABS: Anisocytosis 1+; Band Neutrophils 14 % (0-10); Eosinophils 1 % (0-10); Lymphocytes 5 % (20-55); Metamyelocytes 2 %; Myelocytes 1 %; Nucleated Red Blood Cells 1 (0-5); Platelet Estimate Increased; Segmented Neutrophils 69 % (50-85); Smudge Cells Few; Total Cells Counted 100
[2020-05-03 10:30] LABS: Apearance,Urine CLOUDY (Clear); Bilirubin,Urine Negative (Negative); Blood, Urine Large mg/dL (Negative); Glucose,Urine (UA) 50 mg/dL (Negative); Ketones,Urine Negative (Negative); Mucus,Urine Occasional /LPF (Occasional); Nitrite,Urine Negative (Negative); Protein,Urine 100 MG/DL; RBC,Urine 90 /HPF (0-4); Squamous Epithelial Cell,Urine Occasional /HPF (0-10); Urine Color Amber (Yellow); Urine Specific Gravity 1.018 (1.001-1.035); WBC,Urine 188 /HPF (0-6)
[2020-05-03] MEDS: SODIUM CHLORIDE 1 GM TABLET PER TUBE SCH ×2 (11:41→18:45)
[2020-05-03] MEDS: INSULIN LISPRO 100 UNIT/ML SUBCUT SCH ×3 (11:41→23:52)
[2020-05-03] MEDS: PIPERACILLIN/TAZOBACTAM 3,375 MG in SODIUM CHLORIDE 0.9% 100 ML IV SCH (17:10)
[2020-05-03] MEDS: guaiFENesin 200 MG/10 ML UDCUP PO PRN (20:46)
[2020-05-03] MEDS: SIMVASTATIN 10 MG TABLET PO SCH (20:46)
[2020-05-03] MEDS: NYSTATIN POWDER 15 GM BOTTLE TOP SCH (23:52)
[2020-05-04] MEDS: ALBUTEROL INHALER 18 GM INH SCH ×5 (00:23→20:45)
[2020-05-04] MEDS: PIPERACILLIN/TAZOBACTAM 3,375 MG in SODIUM CHLORIDE 0.9% 100 ML IV SCH ×3 (01:18→15:48)
[2020-05-04 04:09] LABS: ABG Base Excess 0.8 MMOL/L (-2.5-2.5); ABG HCO3 25.2 MMOL/L (20-26); ABG Oxygen Saturation 98.4 % (95-100); ABG PCO2 56.5 MM HG (35-48); ABG PH 7.301 (7.35-7.45); ABG TCO2 26.3 MMOL/L (23-27); Allen Test Positive; Pt O2 Delivery Device Ventilator
[2020-05-04] MEDS: SODIUM CHLORIDE 1 GM TABLET PER TUBE SCH ×3 (04:24→20:45)
[2020-05-04 05:02] LABS: Basophils % 0.1 % (0.0-0.8); Eosinophils % 0.1 % (0.00-10.9); Hematocrit 23.7 VOL% (35.7-47.0); Hemoglobin 7.6 GM/DL (12.0-16.0); Immature Granulocytes % 5.4 %; Immature Granulocytes Absolute 0.94 #; Lymphocytes % 5.6 % (21.3-54.2); Mean Corpuscular HGB Conc 32.1 GM/DL (32-36); Mean Corpuscular Volume 84.6 FL (87-102); Mean Platelet Volume 8.7 FL (9.6-12.0); Monocytes % 5.5 % (1.7-12.7); NRBC # 0.02 10*3/uL; Neutrophils % 83.3 % (38.7-73.9); Platelet Count 455 T/CUMM (130-400); Red Cell Distribution Width 14.4 % (9.3-17.3); White Blood Count 17.5 T/CUMM (4-12)
[2020-05-04 05:18] LABS: Calcium 8.4 MG/DL (8.5-10.1); Osmolality,Calculated 254.9 MOS/KG (273-304)
[2020-05-04 05:22] LABS: Lymphocytes 9 % (20-55); Nucleated Red Blood Cells 1 (0-5); Segmented Neutrophils 86 % (50-85); Total Cells Counted 100
[2020-05-04 05:23] LABS: Hypochromasia 2+; Microcytosis 1+; Platelet Estimate Adequate
[2020-05-04 05:33] LABS: Ferritin 305.7 ng/ml (8-252)
[2020-05-04] MEDS: INSULIN LISPRO 100 UNIT/ML SUBCUT SCH ×3 (05:56→18:08)
[2020-05-04] MEDS: methylPREDNISolone SOD SUC 125 MG/2 ML VIAL IV SCH ×2 (08:14→20:45)
[2020-05-04] MEDS: ENOXAPARIN 150 MG/ML SYRINGE SUBCUT SCH ×2 (08:14→21:48)
[2020-05-04] MEDS: lisinopriL 20 MG TABLET PO SCH (08:17)
[2020-05-04] MEDS: ASCORBIC ACID 500 MG TABLET PO SCH ×2 (08:18→21:48)
[2020-05-04] MEDS: ASPIRIN CHEW 81 MG TABLET PO SCH (08:18)
[2020-05-04] MEDS: METOPROLOL TARTRATE 25 MG TABLET NG SCH ×2 (08:19→21:48)
[2020-05-04] MEDS: NICOTINE 14 MG/24 HR PATCH TRANSDERM SCH (08:19)
[2020-05-04] MEDS: PANTOPRAZOLE 40 MG VIAL IV SCH (08:19)
[2020-05-04] MEDS: NYSTATIN POWDER 15 GM BOTTLE TOP SCH ×3 (08:19→21:48)
[2020-05-04] MEDS: DOCUSATE/SENNA 50-8.6 MG TABLET PO SCH ×2 (08:20→21:48)
[2020-05-04] MEDS: amLODIPine 10 MG TABLET PO SCH (08:20)
[2020-05-04 10:25] LABS: Free T4 (Free Thyroxine) 1.71 NG/DL (0.76-1.46); Thyroid Stimulating Hormone 0.111 uIU/ml (0.358-3.74)
[2020-05-04] MEDS: fentaNYL INJ 1,250 MCG in SODIUM CHLORIDE 0.9% 225 ML IV PRN ×2 (13:59→22:30)
[2020-05-04] MEDS: ROCURONIUM 500 MG in SODIUM CHLORIDE 0.9% 500 ML IV PRN (15:46)
[2020-05-04] MEDS: SIMVASTATIN 10 MG TABLET PO SCH (21:48)
[2020-05-05] MEDS: INSULIN LISPRO 100 UNIT/ML SUBCUT SCH ×4 (00:19→17:50)
[2020-05-05] MEDS: PIPERACILLIN/TAZOBACTAM 3,375 MG in SODIUM CHLORIDE 0.9% 100 ML IV SCH ×2 (00:19→07:52)
[2020-05-05] MEDS: ALBUTEROL INHALER 18 GM INH SCH ×4 (00:22→20:10)
[2020-05-05] MEDS: fentaNYL INJ 1,250 MCG in SODIUM CHLORIDE 0.9% 225 ML IV PRN ×3 (04:20→13:39)
[2020-05-05 04:22] LABS: ABG Base Excess 1.1 MMOL/L (-2.5-2.5); ABG HCO3 27.5 MMOL/L (20-26); ABG Oxygen Saturation 98.6 % (95-100); ABG PCO2 54.4 MM HG (35-48); ABG PH 7.322 (7.35-7.45); ABG PO2 158.5 MM HG (80-95); ABG TCO2 29.2 MMOL/L (23-27); Allen Test Positive; Pt O2 Delivery Device Ventilator
[2020-05-05 04:51] LABS: Basophils % 0.2 % (0.0-0.8); Hematocrit 25.2 VOL% (35.7-47.0); Hemoglobin 7.8 GM/DL (12.0-16.0); Immature Granulocytes % 7.7 %; Immature Granulocytes Absolute 1.48 #; Lymphocytes # 1.1 10*3/uL (1.4-4.0); Mean Platelet Volume 8.8 FL (9.6-12.0); Monocytes % 7.2 % (1.7-12.7); NRBC # 0.04 10*3/uL; Neutrophils % 78.9 % (38.7-73.9); Platelet Count 557 T/CUMM (130-400); Red Blood Count 2.93 MC/CUMM (3.8-5.5); Red Cell Distribution Width 14.4 % (9.3-17.3); White Blood Count 19.1 T/CUMM (4-12)
[2020-05-05 05:11] LABS: Band Neutrophils 3 % (0-10); Lymphocytes 7 % (20-55); Myelocytes 1 %; Segmented Neutrophils 85 % (50-85); Total Cells Counted 100
[2020-05-05 05:12] LABS: Hypochromasia 1+; Microcytosis 1+; Ovalocytes Slight; Platelet Estimate Adequate
[2020-05-05] MEDS: SODIUM CHLORIDE 1 GM TABLET PER TUBE SCH ×2 (05:12→11:58)
[2020-05-05 05:19] LABS: Calcium 8.3 MG/DL (8.5-10.1); Osmolality,Calculated 263.6 MOS/KG (273-304)
[2020-05-05 06:13] LABS: Ferritin 281.8 ng/ml (8-252)
[2020-05-05] MEDS: methylPREDNISolone SOD SUC 125 MG/2 ML VIAL IV SCH ×2 (07:54→20:10)
[2020-05-05] MEDS: ENOXAPARIN 150 MG/ML SYRINGE SUBCUT SCH ×2 (08:04→20:10)
[2020-05-05] MEDS: NICOTINE 14 MG/24 HR PATCH TRANSDERM SCH (08:05)
[2020-05-05] MEDS: METOPROLOL TARTRATE 25 MG TABLET NG SCH ×2 (08:05→20:10)
[2020-05-05] MEDS: ASCORBIC ACID 500 MG TABLET PO SCH ×2 (08:05→20:11)
[2020-05-05] MEDS: amLODIPine 10 MG TABLET PO SCH (08:05)
[2020-05-05] MEDS: DOCUSATE/SENNA 50-8.6 MG TABLET PO SCH ×2 (08:05→20:11)
[2020-05-05] MEDS: lisinopriL 20 MG TABLET PO SCH (08:05)
[2020-05-05] MEDS: ASPIRIN CHEW 81 MG TABLET PO SCH (08:05)
[2020-05-05] MEDS: NYSTATIN POWDER 15 GM BOTTLE TOP SCH ×3 (08:06→20:10)
[2020-05-05] MEDS: PANTOPRAZOLE 40 MG VIAL IV SCH (08:06)
[2020-05-05] MEDS: ROCURONIUM 500 MG in SODIUM CHLORIDE 0.9% 500 ML IV PRN (08:30)
[2020-05-05] MEDS: cefTRIAXone 1,000 MG in SYRINGE 1 EACH IV SCH (10:33)
[2020-05-05] MEDS ORDERED: FUROSEMIDE 40 MG/4 ML VIAL IV ONE (14:34)
[2020-05-05] MEDS: SODIUM CHLORIDE 0.9% 500 ML IV SCH (16:00)
[2020-05-05] MEDS ORDERED: SODIUM CHLORIDE 0.9% 250 ML IV SCH (16:30)
[2020-05-05] MEDS: SIMVASTATIN 10 MG TABLET PO SCH (20:11)
[2020-05-05] MEDS: hydrALAZINE 20 MG/1 ML VIAL IV PRN (22:43)
[2020-05-06] MEDS: fentaNYL INJ 1,250 MCG in SODIUM CHLORIDE 0.9% 225 ML IV PRN ×5 (00:10→17:29)
[2020-05-06] MEDS: INSULIN LISPRO 100 UNIT/ML SUBCUT SCH ×5 (00:30→20:02)
[2020-05-06] MEDS: ALBUTEROL INHALER 18 GM INH SCH ×4 (00:30→20:01)
[2020-05-06] MEDS: ROCURONIUM 500 MG in SODIUM CHLORIDE 0.9% 500 ML IV PRN (01:44)
[2020-05-06 04:31] LABS: Basophils # 0.1 10*3/uL (0.0-0.2); Basophils % 0.3 % (0.0-0.8); Eosinophils % 0.1 % (0.00-10.9); Hematocrit 26.5 VOL% (35.7-47.0); Immature Granulocytes % 10.7 %; Immature Granulocytes Absolute 2.04 #; Lymphocytes # 1.2 10*3/uL (1.4-4.0); Mean Corpuscular HGB Conc 30.2 GM/DL (32-36); Mean Platelet Volume 8.8 FL (9.6-12.0); Monocytes % 6.1 % (1.7-12.7); NRBC # 0.03 10*3/uL; Neutrophils % 76.8 % (38.7-73.9); Platelet Count 606 T/CUMM (130-400); Red Blood Count 3.01 MC/CUMM (3.8-5.5); Red Cell Distribution Width 14.8 % (9.3-17.3); White Blood Count 19.1 T/CUMM (4-12)
[2020-05-06 04:47] LABS: ABG Base Excess -0.2 MMOL/L (-2.5-2.5); ABG HCO3 26.5 MMOL/L (20-26); ABG Oxygen Saturation 97.8 % (95-100); ABG PCO2 54.7 MM HG (35-48); ABG PH 7.303 (7.35-7.45); ABG PO2 113.4 MM HG (80-95); ABG TCO2 28.2 MMOL/L (23-27); Allen Test Positive; Pt O2 Delivery Device Ventilator
[2020-05-06 05:00] LABS: Band Neutrophils 2 % (0-10); Lymphocytes 6 % (20-55); Myelocytes 1 %; Nucleated Red Blood Cells 1 (0-5); Segmented Neutrophils 89 % (50-85); Total Cells Counted 100
[2020-05-06 05:01] LABS: Hypochromasia 1+; Microcytosis 1+; Platelet Estimate Increased
[2020-05-06 05:08] LABS: Osmolality,Calculated 279.4 MOS/KG (273-304)
[2020-05-06 06:24] LABS: Calcium 7.9 MG/DL (8.5-10.1); Osmolality,Calculated 280.4 MOS/KG (273-304)
[2020-05-06] MEDS: methylPREDNISolone SOD SUC 125 MG/2 ML VIAL IV SCH ×2 (08:27→20:03)
[2020-05-06] MEDS: ENOXAPARIN 150 MG/ML SYRINGE SUBCUT SCH (08:28)
[2020-05-06] MEDS: DOCUSATE/SENNA 50-8.6 MG TABLET PO SCH ×2 (08:28→20:02)
[2020-05-06] MEDS: PANTOPRAZOLE 40 MG VIAL IV SCH (08:28)
[2020-05-06] MEDS: NICOTINE 14 MG/24 HR PATCH TRANSDERM SCH (08:28)
[2020-05-06] MEDS: METOPROLOL TARTRATE 25 MG TABLET NG SCH ×2 (08:29→20:02)
[2020-05-06] MEDS: NYSTATIN POWDER 15 GM BOTTLE TOP SCH ×3 (08:29→20:02)
[2020-05-06] MEDS: lisinopriL 20 MG TABLET PO SCH (08:29)
[2020-05-06] MEDS: amLODIPine 10 MG TABLET PO SCH (08:29)
[2020-05-06] MEDS: ASCORBIC ACID 500 MG TABLET PO SCH ×2 (08:29→20:02)
[2020-05-06] MEDS: ASPIRIN CHEW 81 MG TABLET PO SCH (08:29)
[2020-05-06] MEDS: cefTRIAXone 1,000 MG in SYRINGE 1 EACH IV SCH (12:16)
[2020-05-06] MEDS: POLYETHYLENE GLYCOL POWDER 17 GM PACK PO SCH (16:33)
[2020-05-06] MEDS: SODIUM CHLORIDE 0.9% 500 ML IV SCH (17:41)
[2020-05-06] MEDS: SIMVASTATIN 10 MG TABLET PO SCH (20:02)
[2020-05-06] MEDS: INSULIN GLARGINE 100 UNIT/ML SUBCUT SCH (20:02)
[2020-05-06] MEDS: fentaNYL INJ 2,500 MCG in SODIUM CHLORIDE 0.9% 450 ML IV PRN (21:21)
[2020-05-06] MEDS: ENOXAPARIN 80 MG/0.8 ML SYRINGE SUBCUT SCH (21:36)
[2020-05-07] MEDS: fentaNYL INJ 2,500 MCG in SODIUM CHLORIDE 0.9% 450 ML IV PRN ×6 (00:15→23:43)
[2020-05-07] MEDS ORDERED: OXYMETAZOLINE 0.05% NASAL SPRAY 15 ML BOTTLE BOTH NARES PRN (01:39)
[2020-05-07 02:00] LABS: Hematocrit 21.5 VOL% (35.7-47.0); Hemoglobin 6.7 GM/DL (12.0-16.0)
[2020-05-07] MEDS: INSULIN LISPRO 100 UNIT/ML SUBCUT SCH ×6 (02:35→21:03)
[2020-05-07] MEDS: ALBUTEROL INHALER 18 GM INH SCH ×4 (02:38→21:03)
[2020-05-07] MEDS ORDERED: SODIUM CHLORIDE 0.9% 1,000 ML IV PRN ×2 (02:56→03:28)
[2020-05-07 03:57] LABS: Partial Thromboplastin Time 33.1 SECS (23.9-33.8)
[2020-05-07 04:37] LABS: ABG Base Excess -0.3 MMOL/L (-2.5-2.5); ABG HCO3 24.2 MMOL/L (20-26); ABG Oxygen Saturation 95.9 % (95-100); ABG PCO2 48.5 MM HG (35-48); ABG PH 7.333 (7.35-7.45); ABG PO2 81.9 MM HG (80-95); ABG TCO2 24.6 MMOL/L (23-27); Allen Test Positive; Pt O2 Delivery Device Ventilator
[2020-05-07 05:28] LABS: Calcium 7.7 MG/DL (8.5-10.1); Osmolality,Calculated 297.4 MOS/KG (273-304)
[2020-05-07 05:44] LABS: Ferritin 207.7 ng/ml (8-252)
[2020-05-07] MEDS: ENOXAPARIN 80 MG/0.8 ML SYRINGE SUBCUT SCH (08:11)
[2020-05-07] MEDS: NICOTINE 14 MG/24 HR PATCH TRANSDERM SCH (08:11)
[2020-05-07] MEDS: methylPREDNISolone SOD SUC 125 MG/2 ML VIAL IV SCH ×2 (08:11→21:03)
[2020-05-07] MEDS: PANTOPRAZOLE 40 MG VIAL IV SCH (08:12)
[2020-05-07] MEDS: POLYETHYLENE GLYCOL POWDER 17 GM PACK PO SCH (08:13)
[2020-05-07] MEDS: MULTIVITAMIN LIQUID (CENTRUM) 60 ML BOTTLE PO SCH (08:14)
[2020-05-07] MEDS: ASCORBIC ACID 500 MG TABLET PO SCH ×2 (08:14→21:04)
[2020-05-07] MEDS: DOCUSATE/SENNA 50-8.6 MG TABLET PO SCH ×2 (08:14→21:04)
[2020-05-07] MEDS: METOPROLOL TARTRATE 25 MG TABLET NG SCH ×3 (08:14→21:04)
[2020-05-07] MEDS: ASPIRIN CHEW 81 MG TABLET PO SCH (08:14)
[2020-05-07] MEDS: NYSTATIN POWDER 15 GM BOTTLE TOP SCH ×3 (08:14→21:04)
[2020-05-07] MEDS: lisinopriL 20 MG TABLET PO SCH ×2 (08:14→09:52)
[2020-05-07] MEDS: amLODIPine 10 MG TABLET PO SCH ×2 (08:14→09:52)
[2020-05-07] MEDS: cefTRIAXone 1,000 MG in SYRINGE 1 EACH IV SCH (09:53)
[2020-05-07 12:22] LABS: Basophils % 0.2 % (0.0-0.8); Eosinophils % 0.1 % (0.00-10.9); Hematocrit 28.6 VOL% (35.7-47.0); Hemoglobin 8.9 GM/DL (12.0-16.0); Immature Granulocytes Absolute 2.23 #; Lymphocytes # 1.9 10*3/uL (1.4-4.0); Lymphocytes % 9.6 % (21.3-54.2); Mean Corpuscular HGB Conc 31.1 GM/DL (32-36); Mean Corpuscular Volume 88.3 FL (87-102); Mean Platelet Volume 8.9 FL (9.6-12.0); Monocytes % 9.6 % (1.7-12.7); NRBC # 0.15 10*3/uL; Neutrophils % 69.5 % (38.7-73.9); Platelet Count 527 T/CUMM (130-400); Red Blood Count 3.24 MC/CUMM (3.8-5.5); Red Cell Distribution Width 14.7 % (9.3-17.3); White Blood Count 20.2 T/CUMM (4-12)
[2020-05-07 14:23] LABS: Hypochromasia 3+; Lymphocytes 9 % (20-55); Microcytosis 3+; Myelocytes 11 %; Nucleated Red Blood Cells 1 (0-5); Segmented Neutrophils 76 % (50-85); Total Cells Counted 100
[2020-05-07] MEDS: SODIUM CHLORIDE 0.9% 500 ML IV SCH (17:52)
[2020-05-07] MEDS: SIMVASTATIN 10 MG TABLET PO SCH (21:04)
[2020-05-07] MEDS: INSULIN GLARGINE 100 UNIT/ML SUBCUT SCH (21:04)
[2020-05-08] MEDS: SODIUM CHLORIDE 0.9% 500 ML IV SCH ×2 (00:30→17:14)
[2020-05-08] MEDS: INSULIN LISPRO 100 UNIT/ML SUBCUT SCH ×6 (00:30→20:30)
[2020-05-08] MEDS: ALBUTEROL INHALER 18 GM INH SCH ×4 (01:43→21:39)
[2020-05-08 04:47] LABS: Osmolality,Calculated 291.4 MOS/KG (273-304)
[2020-05-08 04:49] LABS: Basophils % 0.1 % (0.0-0.8); Eosinophils % 0.1 % (0.00-10.9); Hematocrit 23.7 VOL% (35.7-47.0); Hemoglobin 7.5 GM/DL (12.0-16.0); Immature Granulocytes % 9.7 %; Immature Granulocytes Absolute 1.66 #; Lymphocytes # 1.6 10*3/uL (1.4-4.0); Lymphocytes % 9.5 % (21.3-54.2); Mean Corpuscular HGB Conc 31.6 GM/DL (32-36); Mean Corpuscular Volume 87.8 FL (87-102); Mean Platelet Volume 9.1 FL (9.6-12.0); Monocytes % 7.9 % (1.7-12.7); NRBC # 0.12 10*3/uL; Neutrophils % 72.7 % (38.7-73.9); Red Cell Distribution Width 14.7 % (9.3-17.3); White Blood Count 17.2 T/CUMM (4-12)
[2020-05-08 04:59] LABS: Platelet Count 385 T/CUMM (130-400)
[2020-05-08 05:22] LABS: ABG Base Excess 0.7 MMOL/L (-2.5-2.5); ABG Oxygen Saturation 94.8 % (95-100); ABG PCO2 46.5 MM HG (35-48); ABG PH 7.361 (7.35-7.45); ABG PO2 69.8 MM HG (80-95)
[2020-05-08] MEDS: fentaNYL INJ 2,500 MCG in SODIUM CHLORIDE 0.9% 450 ML IV PRN ×3 (07:05→17:15)
[2020-05-08 07:17] LABS: Ferritin 184.4 ng/ml (8-252)
[2020-05-08] MEDS: methylPREDNISolone SOD SUC 125 MG/2 ML VIAL IV SCH ×2 (08:23→20:31)
[2020-05-08] MEDS: PANTOPRAZOLE 40 MG VIAL IV SCH (08:24)
[2020-05-08] MEDS: POLYETHYLENE GLYCOL POWDER 17 GM PACK PO SCH (08:24)
[2020-05-08] MEDS: NICOTINE 14 MG/24 HR PATCH TRANSDERM SCH (08:24)
[2020-05-08] MEDS: DOCUSATE/SENNA 50-8.6 MG TABLET PO SCH ×2 (08:25→21:41)
[2020-05-08] MEDS: ASCORBIC ACID 500 MG TABLET PO SCH ×2 (08:25→21:41)
[2020-05-08] MEDS: MULTIVITAMIN LIQUID (CENTRUM) 60 ML BOTTLE PO SCH (08:25)
[2020-05-08] MEDS: NYSTATIN POWDER 15 GM BOTTLE TOP SCH ×3 (08:25→21:41)
[2020-05-08 08:35] LABS: Band Neutrophils 3 % (0-10); Hypochromasia 1+; Lymphocytes 15 % (20-55); Microcytosis 1+; Myelocytes 1 %; Segmented Neutrophils 73 % (50-85); Total Cells Counted 100
[2020-05-08 08:36] LABS: Polychromasia Slight
[2020-05-08] MEDS ORDERED: INSULIN GLARGINE 100 UNIT/ML SUBCUT SCH (09:04)
[2020-05-08] MEDS: lisinopriL 20 MG TABLET PO SCH (09:23)
[2020-05-08] MEDS: METOPROLOL TARTRATE 25 MG TABLET NG SCH ×2 (09:23→21:41)
[2020-05-08] MEDS: cefTRIAXone 1,000 MG in SYRINGE 1 EACH IV SCH (09:23)
[2020-05-08] MEDS: amLODIPine 10 MG TABLET PO SCH (09:23)
[2020-05-08] MEDS ORDERED: fentaNYL INJ 2,500 MCG in SODIUM CHLORIDE 0.9% 200 ML IV PRN (19:24)
[2020-05-08] MEDS: hydrALAZINE 20 MG/1 ML VIAL IV PRN (21:00)
[2020-05-08] MEDS: SIMVASTATIN 10 MG TABLET PO SCH (21:41)
[2020-05-09] MEDS: fentaNYL INJ 2,500 MCG in SODIUM CHLORIDE 0.9% 75 ML IV PRN ×5 (00:30→23:40)
[2020-05-09] MEDS: INSULIN LISPRO 100 UNIT/ML SUBCUT SCH ×6 (00:51→18:03)
[2020-05-09] MEDS: ALBUTEROL INHALER 18 GM INH SCH ×2 (03:28→11:36)
[2020-05-09 04:52] LABS: ABG HCO3 24.4 MMOL/L (20-26); ABG Oxygen Saturation 96.3 % (95-100); ABG PCO2 52.6 MM HG (35-48); ABG PH 7.314 (7.35-7.45); ABG PO2 87.9 MM HG (80-95); ABG TCO2 24.8 MMOL/L (23-27); Allen Test Positive; Pt O2 Delivery Device Ventilator
[2020-05-09 04:57] LABS: Basophils # 0.1 10*3/uL (0.0-0.2); Basophils % 0.3 % (0.0-0.8); Eosinophils % 0.1 % (0.00-10.9); Hematocrit 25.9 VOL% (35.7-47.0); Hemoglobin 7.9 GM/DL (12.0-16.0); Immature Granulocytes Absolute 3.06 #; Lymphocytes # 1.5 10*3/uL (1.4-4.0); Lymphocytes % 6.2 % (21.3-54.2); Mean Corpuscular HGB Conc 30.5 GM/DL (32-36); Mean Corpuscular Volume 90.2 FL (87-102); Mean Platelet Volume 9.1 FL (9.6-12.0); Monocytes % 6.9 % (1.7-12.7); Neutrophils % 73.5 % (38.7-73.9); Platelet Count 409 T/CUMM (130-400); Red Blood Count 2.87 MC/CUMM (3.8-5.5); Red Cell Distribution Width 15.3 % (9.3-17.3); White Blood Count 23.5 T/CUMM (4-12)
[2020-05-09 05:18] LABS: Calcium 8.5 MG/DL (8.5-10.1); Osmolality,Calculated 297.7 MOS/KG (273-304)
[2020-05-09 06:08] LABS: Band Neutrophils 1 % (0-10); Lymphocytes 6 % (20-55); Metamyelocytes 4 %; Nucleated Red Blood Cells 1 (0-5); Segmented Neutrophils 85 % (50-85); Total Cells Counted 100
[2020-05-09 06:09] LABS: Hypochromasia 1+; Microcytosis 1+; Platelet Estimate Increased; Polychromasia Slight
[2020-05-09] MEDS: SODIUM CHLORIDE 0.9% 500 ML IV SCH (06:28)
[2020-05-09] MEDS: ASCORBIC ACID 500 MG TABLET PO SCH ×2 (08:10→21:46)
[2020-05-09] MEDS: DOCUSATE/SENNA 50-8.6 MG TABLET PO SCH (08:10)
[2020-05-09] MEDS: METOPROLOL TARTRATE 25 MG TABLET NG SCH ×2 (08:11→21:46)
[2020-05-09] MEDS: lisinopriL 20 MG TABLET PO SCH (08:11)
[2020-05-09] MEDS: amLODIPine 10 MG TABLET PO SCH (08:11)
[2020-05-09] MEDS: POLYETHYLENE GLYCOL POWDER 17 GM PACK PO SCH (08:11)
[2020-05-09] MEDS: NICOTINE 14 MG/24 HR PATCH TRANSDERM SCH (08:11)
[2020-05-09] MEDS: PANTOPRAZOLE 40 MG VIAL IV SCH (08:12)
[2020-05-09] MEDS: methylPREDNISolone SOD SUC 125 MG/2 ML VIAL IV SCH (08:12)
[2020-05-09] MEDS: MULTIVITAMIN LIQUID (CENTRUM) 60 ML BOTTLE PO SCH (08:13)
[2020-05-09] MEDS: NYSTATIN POWDER 15 GM BOTTLE TOP SCH ×3 (08:13→21:46)
[2020-05-09] MEDS: cefTRIAXone 1,000 MG in SYRINGE 1 EACH IV SCH (09:30)
[2020-05-09] MEDS: ENOXAPARIN 80 MG/0.8 ML SYRINGE SUBCUT SCH ×2 (11:32→22:25)
[2020-05-09] MEDS ORDERED: methylPREDNISolone SOD SUC 125 MG/2 ML VIAL IV SCH (20:00)
[2020-05-09] MEDS: SIMVASTATIN 10 MG TABLET PO SCH (21:46)
[2020-05-09] MEDS: INSULIN GLARGINE 100 UNIT/ML SUBCUT SCH (21:46)
[2020-05-10] MEDS: INSULIN LISPRO 100 UNIT/ML SUBCUT SCH ×4 (00:45→17:20)
[2020-05-10] MEDS: fentaNYL INJ 2,500 MCG in SODIUM CHLORIDE 0.9% 75 ML IV PRN ×5 (04:00→22:36)
[2020-05-10 04:36] LABS: ABG Base Excess 1.1 MMOL/L (-2.5-2.5); ABG HCO3 25.1 MMOL/L (20-26); ABG Oxygen Saturation 95.3 % (95-100); ABG PCO2 36.8 MM HG (35-48); ABG PH 7.451 (7.35-7.45); ABG PO2 80.3 MM HG (80-95); ABG TCO2 26.2 MMOL/L (23-27); Allen Test Positive; Pt O2 Delivery Device Ventilator
[2020-05-10 04:48] LABS: Basophils % 0.1 % (0.0-0.8); Eosinophils # 0.1 10*3/uL (0.0-0.87); Eosinophils % 0.6 % (0.00-10.9); Hematocrit 24.7 VOL% (35.7-47.0); Hemoglobin 7.5 GM/DL (12.0-16.0); Immature Granulocytes % 9.9 %; Immature Granulocytes Absolute 1.75 #; Lymphocytes # 1.7 10*3/uL (1.4-4.0); Lymphocytes % 9.5 % (21.3-54.2); Mean Corpuscular HGB Conc 30.4 GM/DL (32-36); Mean Corpuscular Volume 90.1 FL (87-102); Mean Platelet Volume 9.3 FL (9.6-12.0); Monocytes % 6.9 % (1.7-12.7); NRBC # 0.17 10*3/uL; Platelet Count 354 T/CUMM (130-400); Red Blood Count 2.74 MC/CUMM (3.8-5.5); Red Cell Distribution Width 16.4 % (9.3-17.3); White Blood Count 17.7 T/CUMM (4-12)
[2020-05-10 05:00] LABS: Calcium 8.2 MG/DL (8.5-10.1)
[2020-05-10 05:12] LABS: Band Neutrophils 2 % (0-10); Eosinophils 1 % (0-10); Hypochromasia 1+; Lymphocytes 14 % (20-55); Microcytosis 1+; Nucleated Red Blood Cells 1 (0-5); Platelet Estimate Adequate; Segmented Neutrophils 78 % (50-85); Total Cells Counted 100
[2020-05-10] MEDS: SODIUM CHLORIDE 0.9% 500 ML IV SCH ×2 (05:44→17:45)
[2020-05-10] MEDS: methylPREDNISolone SOD SUC 125 MG/2 ML VIAL IV SCH ×2 (07:46→21:45)
[2020-05-10] MEDS: MULTIVITAMIN LIQUID (CENTRUM) 60 ML BOTTLE PO SCH (08:01)
[2020-05-10] MEDS: NICOTINE 14 MG/24 HR PATCH TRANSDERM SCH (08:02)
[2020-05-10] MEDS: PANTOPRAZOLE 40 MG VIAL IV SCH (08:02)
[2020-05-10] MEDS: POLYETHYLENE GLYCOL POWDER 17 GM PACK PO SCH (08:02)
[2020-05-10] MEDS: METOPROLOL TARTRATE 25 MG TABLET NG SCH ×2 (08:02→22:34)
[2020-05-10] MEDS: ASCORBIC ACID 500 MG TABLET PO SCH ×2 (08:02→21:49)
[2020-05-10] MEDS: amLODIPine 10 MG TABLET PO SCH (08:03)
[2020-05-10] MEDS: lisinopriL 20 MG TABLET PO SCH (08:03)
[2020-05-10] MEDS: NYSTATIN POWDER 15 GM BOTTLE TOP SCH ×3 (08:03→21:55)
[2020-05-10] MEDS: ENOXAPARIN 80 MG/0.8 ML SYRINGE SUBCUT SCH ×2 (11:37→22:01)
[2020-05-10] MEDS: FUROSEMIDE 40 MG/4 ML VIAL IV SCH (15:34)
[2020-05-10] MEDS: INSULIN GLARGINE 100 UNIT/ML SUBCUT SCH (21:48)
[2020-05-10] MEDS: SIMVASTATIN 10 MG TABLET PO SCH (21:49)
[2020-05-11] MEDS: INSULIN LISPRO 100 UNIT/ML SUBCUT SCH ×5 (01:05→23:31)
[2020-05-11] MEDS: fentaNYL INJ 2,500 MCG in SODIUM CHLORIDE 0.9% 75 ML IV PRN ×4 (03:02→18:56)
[2020-05-11 05:14] LABS: Basophils # 0.1 10*3/uL (0.0-0.2); Basophils % 0.3 % (0.0-0.8); Eosinophils # 0.2 10*3/uL (0.0-0.87); Eosinophils % 0.7 % (0.00-10.9); Hematocrit 29.8 VOL% (35.7-47.0); Hemoglobin 9.2 GM/DL (12.0-16.0); Immature Granulocytes % 9.7 %; Immature Granulocytes Absolute 2.24 #; Lymphocytes # 1.6 10*3/uL (1.4-4.0); Lymphocytes % 6.9 % (21.3-54.2); Mean Corpuscular HGB Conc 30.9 GM/DL (32-36); Mean Corpuscular Volume 90.9 FL (87-102); Mean Platelet Volume 9.2 FL (9.6-12.0); Monocytes % 2.6 % (1.7-12.7); NRBC # 0.17 10*3/uL; Neutrophils % 79.8 % (38.7-73.9); Platelet Count 418 T/CUMM (130-400); Red Blood Count 3.28 MC/CUMM (3.8-5.5); Red Cell Distribution Width 17.5 % (9.3-17.3); White Blood Count 23.1 T/CUMM (4-12)
[2020-05-11 05:30] LABS: ABG Base Excess 0.1 MMOL/L (-2.5-2.5); ABG HCO3 26.7 MMOL/L (20-26); ABG Oxygen Saturation 96.1 % (95-100); ABG PCO2 52.8 MM HG (35-48); ABG PH 7.321 (7.35-7.45); ABG TCO2 28.3 MMOL/L (23-27)
[2020-05-11 05:36] LABS: Calcium 8.4 MG/DL (8.5-10.1); Osmolality,Calculated 291.8 MOS/KG (273-304)
[2020-05-11 05:43] LABS: Band Neutrophils 2 % (0-10); Eosinophils 1 % (0-10); Hypochromasia 1+; Lymphocytes 5 % (20-55); Metamyelocytes 3 %; Myelocytes 1 %; Nucleated Red Blood Cells 1 (0-5); Segmented Neutrophils 84 % (50-85); Total Cells Counted 100
[2020-05-11 05:44] LABS: Microcytosis 1+; Polychromasia Slight
[2020-05-11 05:45] LABS: Platelet Estimate Increased
[2020-05-11] MEDS: methylPREDNISolone SOD SUC 125 MG/2 ML VIAL IV SCH (08:23)
[2020-05-11] MEDS: FUROSEMIDE 40 MG/4 ML VIAL IV SCH (08:27)
[2020-05-11] MEDS: PANTOPRAZOLE 40 MG VIAL IV SCH (08:28)
[2020-05-11] MEDS: ASCORBIC ACID 500 MG TABLET PO SCH ×2 (08:32→20:22)
[2020-05-11] MEDS: NYSTATIN POWDER 15 GM BOTTLE TOP SCH ×3 (08:32→20:22)
[2020-05-11] MEDS: MULTIVITAMIN LIQUID (CENTRUM) 60 ML BOTTLE PO SCH (08:32)
[2020-05-11] MEDS: POLYETHYLENE GLYCOL POWDER 17 GM PACK PO SCH (08:32)
[2020-05-11] MEDS: METOPROLOL TARTRATE 25 MG TABLET NG SCH ×2 (09:25→20:22)
[2020-05-11] MEDS: lisinopriL 20 MG TABLET PO SCH (09:25)
[2020-05-11] MEDS: amLODIPine 10 MG TABLET PO SCH (09:25)
[2020-05-11] MEDS: ENOXAPARIN 80 MG/0.8 ML SYRINGE SUBCUT SCH ×2 (11:49→23:31)
[2020-05-11] MEDS ORDERED: DEXAMETHASONE 4 MG/1 ML VIAL IV SCH (15:30)
[2020-05-11] MEDS: DEXAMETHASONE 4 MG/1 ML VIAL IV SCH (16:00)
[2020-05-11] MEDS: SODIUM CHLORIDE 0.9% 500 ML IV SCH (17:43)
[2020-05-11] MEDS: INSULIN GLARGINE 100 UNIT/ML SUBCUT SCH (20:22)
[2020-05-11] MEDS: SIMVASTATIN 10 MG TABLET PO SCH (20:22)
[2020-05-12] MEDS: fentaNYL INJ 2,500 MCG in SODIUM CHLORIDE 0.9% 75 ML IV PRN ×5 (00:43→22:52)
[2020-05-12] MEDS: FUROSEMIDE 40 MG/4 ML VIAL IV SCH ×2 (02:00→15:10)
[2020-05-12 04:17] LABS: ABG Base Excess 5.7 MMOL/L (-2.5-2.5); ABG HCO3 29.6 MMOL/L (20-26); ABG Oxygen Saturation 97.9 % (95-100); ABG PCO2 40.4 MM HG (35-48); ABG PH 7.474 (7.35-7.45); ABG PO2 85.1 MM HG (80-95); ABG TCO2 27.8 MMOL/L (23-27)
[2020-05-12 05:26] LABS: Basophils % 0.2 % (0.0-0.8); Eosinophils # 0.1 10*3/uL (0.0-0.87); Eosinophils % 0.5 % (0.00-10.9); Hematocrit 28.8 VOL% (35.7-47.0); Hemoglobin 8.9 GM/DL (12.0-16.0); Immature Granulocytes Absolute 1.12 #; Lymphocytes % 10.5 % (21.3-54.2); Mean Corpuscular HGB Conc 30.9 GM/DL (32-36); Mean Corpuscular Volume 90.6 FL (87-102); Mean Platelet Volume 9.6 FL (9.6-12.0); Monocytes % 6.8 % (1.7-12.7); NRBC # 0.12 10*3/uL; Platelet Count 384 T/CUMM (130-400); Red Blood Count 3.18 MC/CUMM (3.8-5.5); Red Cell Distribution Width 17.8 % (9.3-17.3); White Blood Count 18.8 T/CUMM (4-12)
[2020-05-12 05:42] LABS: Calcium 8.8 MG/DL (8.5-10.1); Osmolality,Calculated 283.8 MOS/KG (273-304)
[2020-05-12 06:20] LABS: Band Neutrophils 3 % (0-10); Hypochromasia 1+; Lymphocytes 5 % (20-55); Microcytosis Slight; Platelet Estimate Adequate; Segmented Neutrophils 84 % (50-85); Total Cells Counted 100
[2020-05-12] MEDS: INSULIN LISPRO 100 UNIT/ML SUBCUT SCH ×3 (06:25→17:51)
[2020-05-12] MEDS: PANTOPRAZOLE 40 MG VIAL IV SCH (08:06)
[2020-05-12] MEDS: MULTIVITAMIN LIQUID (CENTRUM) 60 ML BOTTLE PO SCH (08:07)
[2020-05-12] MEDS: METOPROLOL TARTRATE 25 MG TABLET NG SCH ×2 (08:07→20:34)
[2020-05-12] MEDS: NYSTATIN POWDER 15 GM BOTTLE TOP SCH ×3 (08:07→20:34)
[2020-05-12] MEDS: lisinopriL 20 MG TABLET PO SCH (08:07)
[2020-05-12] MEDS: ASCORBIC ACID 500 MG TABLET PO SCH ×2 (08:07→20:34)
[2020-05-12] MEDS: amLODIPine 10 MG TABLET PO SCH (08:07)
[2020-05-12] MEDS: POLYETHYLENE GLYCOL POWDER 17 GM PACK PO SCH (08:07)
[2020-05-12] MEDS: ENOXAPARIN 80 MG/0.8 ML SYRINGE SUBCUT SCH ×2 (12:48→23:55)
[2020-05-12] MEDS: DEXAMETHASONE 4 MG/1 ML VIAL IV SCH (15:10)
[2020-05-12] MEDS: INSULIN GLARGINE 100 UNIT/ML SUBCUT SCH (20:34)
[2020-05-12] MEDS: SIMVASTATIN 10 MG TABLET PO SCH (20:34)
[2020-05-13] MEDS: INSULIN LISPRO 100 UNIT/ML SUBCUT SCH ×4 (00:05→17:55)
[2020-05-13] MEDS: FUROSEMIDE 40 MG/4 ML VIAL IV SCH (01:59)
[2020-05-13 04:06] LABS: ABG Base Excess 6.3 MMOL/L (-2.5-2.5); ABG HCO3 29.8 MMOL/L (20-26); ABG PCO2 38.7 MM HG (35-48); ABG PH 7.504 (7.35-7.45); ABG PO2 99.1 MM HG (80-95)
[2020-05-13] MEDS: fentaNYL INJ 2,500 MCG in SODIUM CHLORIDE 0.9% 75 ML IV PRN ×2 (04:35→12:02)
[2020-05-13 05:15] LABS: Basophils % 0.1 % (0.0-0.8); Eosinophils # 0.6 10*3/uL (0.0-0.87); Eosinophils % 4.3 % (0.00-10.9); Hematocrit 25.9 VOL% (35.7-47.0); Hemoglobin 7.9 GM/DL (12.0-16.0); Immature Granulocytes % 2.4 %; Immature Granulocytes Absolute 0.33 #; Lymphocytes # 1.5 10*3/uL (1.4-4.0); Lymphocytes % 10.9 % (21.3-54.2); Mean Corpuscular HGB Conc 30.5 GM/DL (32-36); Mean Corpuscular Volume 92.5 FL (87-102); Mean Platelet Volume 9.3 FL (9.6-12.0); Monocytes % 6.8 % (1.7-12.7); NRBC # 0.03 10*3/uL; Neutrophils % 75.5 % (38.7-73.9); Platelet Count 292 T/CUMM (130-400); Red Cell Distribution Width 18.3 % (9.3-17.3); White Blood Count 13.7 T/CUMM (4-12)
[2020-05-13 05:27] LABS: Calcium 8.5 MG/DL (8.5-10.1); Osmolality,Calculated 287.7 MOS/KG (273-304)
[2020-05-13] MEDS ORDERED: ASPIRIN CHEW 81 MG TABLET PO ONE (07:38)
[2020-05-13] MEDS ORDERED: MORPHINE 4 MG/1 ML VIAL IV ONE (08:06)
[2020-05-13] MEDS: PANTOPRAZOLE 40 MG VIAL IV SCH (08:09)
[2020-05-13] MEDS: POLYETHYLENE GLYCOL POWDER 17 GM PACK PO SCH (08:09)
[2020-05-13] MEDS: lisinopriL 20 MG TABLET PO SCH (08:09)
[2020-05-13] MEDS: amLODIPine 10 MG TABLET PO SCH (08:09)
[2020-05-13] MEDS: ASCORBIC ACID 500 MG TABLET PO SCH ×2 (08:10→22:42)
[2020-05-13] MEDS: METOPROLOL TARTRATE 25 MG TABLET NG SCH ×2 (08:10→22:41)
[2020-05-13] MEDS: NYSTATIN POWDER 15 GM BOTTLE TOP SCH ×3 (08:15→22:41)
[2020-05-13] MEDS: MULTIVITAMIN LIQUID (CENTRUM) 60 ML BOTTLE PO SCH (08:15)
[2020-05-13] MEDS: ASPIRIN CHEW 81 MG TABLET PO SCH (09:17)
[2020-05-13] MEDS: ENOXAPARIN 80 MG/0.8 ML SYRINGE SUBCUT SCH ×2 (11:56→23:09)
[2020-05-13] MEDS: DEXAMETHASONE 4 MG/1 ML VIAL IV SCH (16:23)
[2020-05-13] MEDS: INSULIN GLARGINE 100 UNIT/ML SUBCUT SCH (21:00)
[2020-05-13] MEDS: SIMVASTATIN 10 MG TABLET PO SCH (22:42)
[2020-05-14] MEDS: INSULIN LISPRO 100 UNIT/ML SUBCUT SCH ×4 (00:38→17:35)
[2020-05-14 04:49] LABS: ABG Base Excess 4.6 MMOL/L (-2.5-2.5); ABG HCO3 28.6 MMOL/L (20-26); ABG Oxygen Saturation 99.3 % (95-100); ABG PCO2 41.8 MM HG (35-48); ABG PH 7.449 (7.35-7.45); ABG TCO2 26.8 MMOL/L (23-27); Allen Test Positive; Pt O2 Delivery Device Ventilator
[2020-05-14] MEDS: fentaNYL INJ 2,500 MCG in SODIUM CHLORIDE 0.9% 75 ML IV PRN ×3 (05:40→22:15)
[2020-05-14 05:46] LABS: Basophils % 0.1 % (0.0-0.8); Eosinophils # 0.1 10*3/uL (0.0-0.87); Eosinophils % 0.6 % (0.00-10.9); Hematocrit 24.6 VOL% (35.7-47.0); Hemoglobin 7.4 GM/DL (12.0-16.0); Immature Granulocytes % 1.4 %; Lymphocytes # 0.9 10*3/uL (1.4-4.0); Lymphocytes % 5.9 % (21.3-54.2); Mean Corpuscular HGB Conc 30.1 GM/DL (32-36); Mean Corpuscular Volume 93.2 FL (87-102); Mean Platelet Volume 9.5 FL (9.6-12.0); Monocytes % 3.7 % (1.7-12.7); Neutrophils % 88.3 % (38.7-73.9); Platelet Count 267 T/CUMM (130-400); Red Blood Count 2.64 MC/CUMM (3.8-5.5); Red Cell Distribution Width 18.5 % (9.3-17.3); White Blood Count 14.7 T/CUMM (4-12)
[2020-05-14 05:53] LABS: Calcium 8.3 MG/DL (8.5-10.1); Osmolality,Calculated 289.4 MOS/KG (273-304)
[2020-05-14] MEDS: ASCORBIC ACID 500 MG TABLET PO SCH ×2 (08:02→21:32)
[2020-05-14] MEDS: ASPIRIN CHEW 81 MG TABLET PO SCH (08:03)
[2020-05-14] MEDS: MULTIVITAMIN LIQUID (CENTRUM) 60 ML BOTTLE PO SCH (08:03)
[2020-05-14] MEDS: PANTOPRAZOLE 40 MG VIAL IV SCH (08:03)
[2020-05-14] MEDS: METOPROLOL TARTRATE 25 MG TABLET NG SCH ×2 (08:03→21:32)
[2020-05-14] MEDS: POLYETHYLENE GLYCOL POWDER 17 GM PACK PO SCH (08:03)
[2020-05-14] MEDS: lisinopriL 20 MG TABLET PO SCH (08:03)
[2020-05-14] MEDS: amLODIPine 10 MG TABLET PO SCH (08:03)
[2020-05-14] MEDS: NYSTATIN POWDER 15 GM BOTTLE TOP SCH ×3 (08:04→21:32)
[2020-05-14] MEDS: ENOXAPARIN 80 MG/0.8 ML SYRINGE SUBCUT SCH ×2 (10:46→22:14)
[2020-05-14] MEDS: DEXAMETHASONE 4 MG/1 ML VIAL IV SCH (14:36)
[2020-05-14] MEDS: FUROSEMIDE 40 MG/4 ML VIAL IV SCH (15:30)
[2020-05-14] MEDS: INSULIN GLARGINE 100 UNIT/ML SUBCUT SCH (21:32)
[2020-05-14] MEDS: SIMVASTATIN 10 MG TABLET PO SCH (21:32)
[2020-05-15] MEDS: INSULIN LISPRO 100 UNIT/ML SUBCUT SCH ×4 (00:46→17:56)
[2020-05-15] MEDS: fentaNYL INJ 2,500 MCG in SODIUM CHLORIDE 0.9% 75 ML IV PRN ×3 (03:02→14:01)
[2020-05-15 05:02] LABS: ABG Base Excess 6.1 MMOL/L (-2.5-2.5); ABG Oxygen Saturation 97.9 % (95-100); ABG PCO2 39.9 MM HG (35-48); ABG PH 7.485 (7.35-7.45); ABG PO2 84.9 MM HG (80-95); ABG TCO2 28.1 MMOL/L (23-27); Allen Test Positive; Pt O2 Delivery Device Ventilator
[2020-05-15 06:03] LABS: Basophils % 0.2 % (0.0-0.8); Eosinophils # 0.2 10*3/uL (0.0-0.87); Eosinophils % 1.4 % (0.00-10.9); Hematocrit 24.9 VOL% (35.7-47.0); Hemoglobin 7.5 GM/DL (12.0-16.0); Immature Granulocytes % 1.6 %; Immature Granulocytes Absolute 0.17 #; Lymphocytes # 1.1 10*3/uL (1.4-4.0); Lymphocytes % 10.3 % (21.3-54.2); Mean Corpuscular HGB Conc 30.1 GM/DL (32-36); Mean Platelet Volume 9.5 FL (9.6-12.0); Monocytes % 5.6 % (1.7-12.7); NRBC # 0.02 10*3/uL; Neutrophils % 80.9 % (38.7-73.9); Platelet Count 257 T/CUMM (130-400); Red Blood Count 2.65 MC/CUMM (3.8-5.5); Red Cell Distribution Width 18.1 % (9.3-17.3); White Blood Count 10.7 T/CUMM (4-12)
[2020-05-15 06:12] LABS: Calcium 8.5 MG/DL (8.5-10.1); Osmolality,Calculated 289.3 MOS/KG (273-304)
[2020-05-15] MEDS: FUROSEMIDE 40 MG/4 ML VIAL IV SCH (07:44)
[2020-05-15] MEDS: lisinopriL 20 MG TABLET PO SCH (08:04)
[2020-05-15] MEDS: METOPROLOL TARTRATE 25 MG TABLET NG SCH ×3 (08:04→21:24)
[2020-05-15] MEDS: ASCORBIC ACID 500 MG TABLET PO SCH ×2 (08:04→20:51)
[2020-05-15] MEDS: MULTIVITAMIN LIQUID (CENTRUM) 60 ML BOTTLE PO SCH (08:04)
[2020-05-15] MEDS: ASPIRIN CHEW 81 MG TABLET PO SCH (08:04)
[2020-05-15] MEDS: POLYETHYLENE GLYCOL POWDER 17 GM PACK PO SCH (08:04)
[2020-05-15] MEDS: amLODIPine 10 MG TABLET PO SCH (08:04)
[2020-05-15] MEDS: PANTOPRAZOLE 40 MG VIAL IV SCH (08:04)
[2020-05-15] MEDS: NYSTATIN POWDER 15 GM BOTTLE TOP SCH ×3 (08:05→20:51)
[2020-05-15] MEDS: ENOXAPARIN 80 MG/0.8 ML SYRINGE SUBCUT SCH (12:14)
[2020-05-15] MEDS ORDERED: DEXMEDETOMIDINE 200 MCG in SODIUM CHLORIDE 0.9% 48 ML IV PRN (14:36)
[2020-05-15] MEDS: POTASSIUM CHLORIDE 20 MEQ/15 ML UDCUP PER TUBE PRN (15:30)
[2020-05-15] MEDS: DEXAMETHASONE 4 MG/1 ML VIAL IV SCH (15:30)
[2020-05-15] MEDS: INSULIN GLARGINE 100 UNIT/ML SUBCUT SCH (20:50)
[2020-05-15] MEDS: SIMVASTATIN 10 MG TABLET PO SCH (20:51)
[2020-05-16] MEDS: ENOXAPARIN 80 MG/0.8 ML SYRINGE SUBCUT SCH ×2 (00:12→11:49)
[2020-05-16] MEDS: INSULIN LISPRO 100 UNIT/ML SUBCUT SCH ×4 (01:39→17:39)
[2020-05-16 05:16] LABS: ABG Base Excess 4.5 MMOL/L (-2.5-2.5); ABG HCO3 27.5 MMOL/L (20-26); ABG Oxygen Saturation 97.8 % (95-100); ABG PCO2 35.3 MM HG (35-48); ABG PO2 102.6 MM HG (80-95); ABG TCO2 28.6 MMOL/L (23-27); Allen Test Positive; Pt O2 Delivery Device Ventilator
[2020-05-16 06:14] LABS: Basophils % 0.1 % (0.0-0.8); Eosinophils # 0.2 10*3/uL (0.0-0.87); Eosinophils % 1.7 % (0.00-10.9); Hematocrit 24.7 VOL% (35.7-47.0); Hemoglobin 7.7 GM/DL (12.0-16.0); Immature Granulocytes % 1.5 %; Immature Granulocytes Absolute 0.18 #; Lymphocytes # 1.1 10*3/uL (1.4-4.0); Lymphocytes % 9.5 % (21.3-54.2); Mean Corpuscular HGB Conc 31.2 GM/DL (32-36); Mean Corpuscular Volume 91.1 FL (87-102); Mean Platelet Volume 9.2 FL (9.6-12.0); Monocytes % 5.8 % (1.7-12.7); Neutrophils % 81.4 % (38.7-73.9); Platelet Count 284 T/CUMM (130-400); Red Blood Count 2.71 MC/CUMM (3.8-5.5); Red Cell Distribution Width 18.6 % (9.3-17.3); White Blood Count 11.8 T/CUMM (4-12)
[2020-05-16 06:32] LABS: Calcium 8.4 MG/DL (8.5-10.1); Osmolality,Calculated 277.8 MOS/KG (273-304)
[2020-05-16] MEDS: fentaNYL INJ 1,250 MCG in SODIUM CHLORIDE 0.9% 225 ML IV PRN ×2 (08:17→15:44)
[2020-05-16] MEDS: METOPROLOL TARTRATE 25 MG TABLET NG SCH ×2 (08:26→21:23)
[2020-05-16] MEDS: ASPIRIN CHEW 81 MG TABLET PO SCH (08:26)
[2020-05-16] MEDS: amLODIPine 10 MG TABLET PO SCH (08:26)
[2020-05-16] MEDS: ASCORBIC ACID 500 MG TABLET PO SCH ×2 (08:26→21:23)
[2020-05-16] MEDS: PANTOPRAZOLE 40 MG VIAL IV SCH (08:27)
[2020-05-16] MEDS: MULTIVITAMIN LIQUID (CENTRUM) 60 ML BOTTLE PO SCH (08:28)
[2020-05-16] MEDS: NYSTATIN POWDER 15 GM BOTTLE TOP SCH ×3 (08:28→21:23)
[2020-05-16] MEDS: lisinopriL 20 MG TABLET PO SCH (08:33)
[2020-05-16] MEDS: POLYETHYLENE GLYCOL POWDER 17 GM PACK PO SCH (08:34)
[2020-05-16] MEDS: POTASSIUM CHLORIDE 20 MEQ/15 ML UDCUP PER TUBE SCH ×3 (11:49→21:22)
[2020-05-16] MEDS: DEXAMETHASONE 4 MG/1 ML VIAL IV SCH (17:00)
[2020-05-16] MEDS: INSULIN GLARGINE 100 UNIT/ML SUBCUT SCH (21:22)
[2020-05-16] MEDS: SIMVASTATIN 10 MG TABLET PO SCH (21:23)
[2020-05-17] MEDS: ENOXAPARIN 80 MG/0.8 ML SYRINGE SUBCUT SCH ×3 (00:31→23:15)
[2020-05-17] MEDS: INSULIN LISPRO 100 UNIT/ML SUBCUT SCH ×4 (00:31→18:31)
[2020-05-17] MEDS: fentaNYL INJ 1,250 MCG in SODIUM CHLORIDE 0.9% 225 ML IV PRN (00:34)
[2020-05-17 03:59] LABS: ABG Base Excess 2.2 MMOL/L (-2.5-2.5); ABG HCO3 26.3 MMOL/L (20-26); ABG Oxygen Saturation 97.7 % (95-100); ABG PCO2 38.2 MM HG (35-48); ABG PH 7.455 (7.35-7.45); ABG PO2 113.8 MM HG (80-95); ABG TCO2 27.4 MMOL/L (23-27); Allen Test Positive; Pt O2 Delivery Device Ventilator
[2020-05-17 05:25] LABS: Basophils % 0.1 % (0.0-0.8); Eosinophils # 0.2 10*3/uL (0.0-0.87); Eosinophils % 1.3 % (0.00-10.9); Hematocrit 24.2 VOL% (35.7-47.0); Hemoglobin 7.4 GM/DL (12.0-16.0); Immature Granulocytes % 0.9 %; Lymphocytes # 0.8 10*3/uL (1.4-4.0); Lymphocytes % 7.1 % (21.3-54.2); Mean Corpuscular HGB Conc 30.6 GM/DL (32-36); Mean Platelet Volume 9.6 FL (9.6-12.0); Monocytes % 4.2 % (1.7-12.7); Neutrophils % 86.4 % (38.7-73.9); Platelet Count 252 T/CUMM (130-400); Red Blood Count 2.63 MC/CUMM (3.8-5.5); Red Cell Distribution Width 18.9 % (9.3-17.3); White Blood Count 11.3 T/CUMM (4-12)
[2020-05-17 05:53] LABS: Calcium 8.4 MG/DL (8.5-10.1); Osmolality,Calculated 287.3 MOS/KG (273-304)
[2020-05-17] MEDS: fentaNYL INJ 2,500 MCG in SODIUM CHLORIDE 0.9% 450 ML IV PRN ×4 (07:00→22:45)
[2020-05-17] MEDS: POLYETHYLENE GLYCOL POWDER 17 GM PACK PO SCH (08:56)
[2020-05-17] MEDS: ASCORBIC ACID 500 MG TABLET PO SCH ×2 (08:56→20:31)
[2020-05-17] MEDS: ASPIRIN CHEW 81 MG TABLET PO SCH (08:56)
[2020-05-17] MEDS: PANTOPRAZOLE 40 MG VIAL IV SCH (08:56)
[2020-05-17] MEDS: MULTIVITAMIN LIQUID (CENTRUM) 60 ML BOTTLE PO SCH (08:57)
[2020-05-17] MEDS: NYSTATIN POWDER 15 GM BOTTLE TOP SCH ×3 (08:58→20:31)
[2020-05-17] MEDS: POTASSIUM CHLORIDE 20 MEQ/15 ML UDCUP PER TUBE SCH ×2 (10:27→13:48)
[2020-05-17] MEDS: METOPROLOL TARTRATE 25 MG TABLET NG SCH ×2 (13:41→20:31)
[2020-05-17] MEDS: lisinopriL 20 MG TABLET PO SCH (13:41)
[2020-05-17] MEDS: amLODIPine 10 MG TABLET PO SCH (13:41)
[2020-05-17] MEDS: DEXAMETHASONE 4 MG/1 ML VIAL IV SCH (16:23)
[2020-05-17] MEDS: SIMVASTATIN 10 MG TABLET PO SCH (20:30)
[2020-05-17] MEDS: INSULIN GLARGINE 100 UNIT/ML SUBCUT SCH (20:31)
[2020-05-18] MEDS: INSULIN LISPRO 100 UNIT/ML SUBCUT SCH ×4 (00:28→18:05)
[2020-05-18 03:52] LABS: ABG Base Excess 1.5 MMOL/L (-2.5-2.5); ABG HCO3 25.8 MMOL/L (20-26); ABG Oxygen Saturation 99.7 % (95-100); ABG PCO2 38.6 MM HG (35-48); ABG PH 7.432 (7.35-7.45); ABG TCO2 23.4 MMOL/L (23-27); Allen Test Positive; Pt O2 Delivery Device Ventilator
[2020-05-18] MEDS: fentaNYL INJ 2,500 MCG in SODIUM CHLORIDE 0.9% 450 ML IV PRN ×3 (05:04→19:22)
[2020-05-18] MEDS ORDERED: POTASSIUM CHLORIDE 20 MEQ/15 ML UDCUP PER TUBE ONE ×2 (07:39→10:58)
[2020-05-18] MEDS: PANTOPRAZOLE 40 MG VIAL IV SCH (08:24)
[2020-05-18] MEDS: POLYETHYLENE GLYCOL POWDER 17 GM PACK PO SCH (08:24)
[2020-05-18] MEDS: ASPIRIN CHEW 81 MG TABLET PO SCH (08:24)
[2020-05-18] MEDS: ASCORBIC ACID 500 MG TABLET PO SCH ×2 (08:24→21:10)
[2020-05-18] MEDS: NYSTATIN POWDER 15 GM BOTTLE TOP SCH ×3 (08:25→21:10)
[2020-05-18] MEDS: MULTIVITAMIN LIQUID (CENTRUM) 60 ML BOTTLE PO SCH (08:25)
[2020-05-18 09:10] LABS: Basophils % 0.1 % (0.0-0.8); Eosinophils # 0.6 10*3/uL (0.0-0.87); Eosinophils % 6.5 % (0.00-10.9); Hematocrit 26.2 VOL% (35.7-47.0); Hemoglobin 7.5 GM/DL (12.0-16.0); Immature Granulocytes % 1.9 %; Immature Granulocytes Absolute 0.17 #; Lymphocytes # 0.7 10*3/uL (1.4-4.0); Lymphocytes % 7.5 % (21.3-54.2); Mean Corpuscular HGB Conc 28.6 GM/DL (32-36); Mean Platelet Volume 9.2 FL (9.6-12.0); Monocytes % 3.1 % (1.7-12.7); Neutrophils % 80.9 % (38.7-73.9); Platelet Count 253 T/CUMM (130-400); Red Cell Distribution Width 18.6 % (9.3-17.3); White Blood Count 8.9 T/CUMM (4-12)
[2020-05-18 09:24] LABS: Osmolality,Calculated 285.3 MOS/KG (273-304)
[2020-05-18 09:35] LABS: Hypochromasia 1+; Microcytosis Slight
[2020-05-18] MEDS: MORPHINE 4 MG/1 ML VIAL IV PRN ×2 (10:27→13:55)
[2020-05-18] MEDS: ENOXAPARIN 80 MG/0.8 ML SYRINGE SUBCUT SCH (11:28)
[2020-05-18] MEDS: amLODIPine 10 MG TABLET PO SCH (11:29)
[2020-05-18] MEDS: METOPROLOL TARTRATE 25 MG TABLET NG SCH ×2 (11:29→21:10)
[2020-05-18] MEDS: DEXMEDETOMIDINE 200 MCG in SODIUM CHLORIDE 0.9% 48 ML IV PRN ×3 (13:10→22:26)
[2020-05-18] MEDS: lisinopriL 20 MG TABLET PO SCH (13:10)
[2020-05-18] MEDS: DEXAMETHASONE 4 MG/1 ML VIAL IV SCH (15:05)
[2020-05-18] MEDS: FUROSEMIDE 40 MG/4 ML VIAL IV SCH (15:37)
[2020-05-18] MEDS: ACETAMINOPHEN 325 MG TABLET PO PRN ×2 (16:45→21:14)
[2020-05-18] MEDS ORDERED: NOREPINEPHRINE 4 MG/4 ML VIAL IV ONE (17:44)
[2020-05-18] MEDS: NOREPINEPHRINE 8 MG in SODIUM CHLORIDE 0.9% 242 ML IV PRN (17:53)
[2020-05-18] MEDS: SIMVASTATIN 10 MG TABLET PO SCH (21:10)
[2020-05-18] MEDS: INSULIN GLARGINE 100 UNIT/ML SUBCUT SCH (21:10)
[2020-05-18] MEDS ORDERED: DEXMEDETOMIDINE 400 MCG in SODIUM CHLORIDE 0.9% 96 ML IV PRN (21:43)
[2020-05-19] MEDS: ENOXAPARIN 80 MG/0.8 ML SYRINGE SUBCUT SCH ×3 (00:24→23:43)
[2020-05-19] MEDS: INSULIN LISPRO 100 UNIT/ML SUBCUT SCH ×4 (01:00→18:02)
[2020-05-19] MEDS ORDERED: MIDAZOLAM 100 MG in SODIUM CHLORIDE 0.9% 80 ML IV PRN (04:55)
[2020-05-19 05:50] LABS: Calcium 7.6 MG/DL (8.5-10.1); Osmolality,Calculated 288.3 MOS/KG (273-304)
[2020-05-19] MEDS: POTASSIUM CHLORIDE 20 MEQ/15 ML UDCUP PER TUBE PRN ×2 (06:05→15:57)
[2020-05-19] MEDS: fentaNYL INJ 2,500 MCG in SODIUM CHLORIDE 0.9% 450 ML IV PRN ×2 (07:30→23:02)
[2020-05-19] MEDS: ASCORBIC ACID 500 MG TABLET PO SCH ×2 (09:14→21:03)
[2020-05-19] MEDS: ASPIRIN CHEW 81 MG TABLET PO SCH (09:14)
[2020-05-19] MEDS: POLYETHYLENE GLYCOL POWDER 17 GM PACK PO SCH (09:15)
[2020-05-19] MEDS: amLODIPine 10 MG TABLET PO SCH (09:15)
[2020-05-19] MEDS: POTASSIUM CHLORIDE 20 MEQ/15 ML UDCUP PER TUBE SCH (09:15)
[2020-05-19] MEDS: METOPROLOL TARTRATE 25 MG TABLET NG SCH ×2 (09:15→21:03)
[2020-05-19] MEDS: MULTIVITAMIN LIQUID (CENTRUM) 60 ML BOTTLE PO SCH (09:15)
[2020-05-19] MEDS: FUROSEMIDE 40 MG/4 ML VIAL IV SCH ×2 (09:16→15:56)
[2020-05-19] MEDS: NYSTATIN POWDER 15 GM BOTTLE TOP SCH ×3 (09:16→21:03)
[2020-05-19] MEDS: PANTOPRAZOLE 40 MG VIAL IV SCH (09:22)
[2020-05-19] MEDS: lisinopriL 20 MG TABLET PO SCH (09:23)
[2020-05-19 09:55] LABS: ABG Base Excess -3.6 MMOL/L (-2.5-2.5); ABG HCO3 21.4 MMOL/L (20-26); ABG Oxygen Saturation 99.2 % (95-100); ABG PCO2 36.9 MM HG (35-48); ABG PH 7.369 (7.35-7.45); ABG TCO2 19.9 MMOL/L (23-27)
[2020-05-19 10:27] LABS: Basophils # 0.1 10*3/uL (0.0-0.2); Basophils % 0.3 % (0.0-0.8); Eosinophils # 0.4 10*3/uL (0.0-0.87); Eosinophils % 1.7 % (0.00-10.9); Hematocrit 28.7 VOL% (35.7-47.0); Hemoglobin 8.5 GM/DL (12.0-16.0); Immature Granulocytes % 1.9 %; Lymphocytes # 0.8 10*3/uL (1.4-4.0); Lymphocytes % 3.8 % (21.3-54.2); Mean Corpuscular HGB Conc 29.6 GM/DL (32-36); Mean Platelet Volume 9.5 FL (9.6-12.0); NRBC # 0.06 10*3/uL; Neutrophils % 90.3 % (38.7-73.9); Platelet Count 214 T/CUMM (130-400); Red Blood Count 2.96 MC/CUMM (3.8-5.5); Red Cell Distribution Width 19.5 % (9.3-17.3); White Blood Count 21.1 T/CUMM (4-12)
[2020-05-19 10:30] LABS: Apearance,Urine CLOUDY (Clear); Bilirubin,Urine Negative (Negative); Blood, Urine Negative (Negative); Glucose,Urine (UA) Negative (Negative); Ketones,Urine Negative (Negative); Nitrite,Urine Negative (Negative); Protein,Urine 30 MG/DL; RBC,Urine 6 /HPF (0-4); Squamous Epithelial Cell,Urine Occasional /HPF (0-10); Urine Color Amber (Yellow); Urine Specific Gravity 1.021 (1.001-1.035); WBC,Urine 32 /HPF (0-6)
[2020-05-19 10:46] LABS: Band Neutrophils 7 % (0-10); Eosinophils 1 % (0-10); Hypochromasia 2+; Lymphocytes 3 % (20-55); Platelet Estimate Adequate; Segmented Neutrophils 87 % (50-85); Total Cells Counted 100
[2020-05-19 10:47] LABS: Microcytosis Slight
[2020-05-19] MEDS: MEROPENEM 500 MG in SODIUM CHLORIDE 0.9% 100 ML IV SCH ×2 (13:10→20:45)
[2020-05-19] MEDS: AZITHROMYCIN INJ 500 MG in SODIUM CHLORIDE 0.9% 250 ML IV SCH (14:33)
[2020-05-19] MEDS: DEXAMETHASONE 4 MG/1 ML VIAL IV SCH (15:56)
[2020-05-19] MEDS: VANCOMYCIN INJ 2,000 MG in SODIUM CHLORIDE 0.9% 500 ML IV SCH (16:15)
[2020-05-19] MEDS: MENTHOL/ZINC OXIDE OINT 71 GM JAR TOP SCH (21:03)
[2020-05-19] MEDS: INSULIN GLARGINE 100 UNIT/ML SUBCUT SCH (21:03)
[2020-05-19] MEDS: SIMVASTATIN 10 MG TABLET PO SCH (21:03)
[2020-05-19] MEDS: ACETAMINOPHEN 325 MG TABLET PO PRN (21:25)
[2020-05-20] MEDS: INSULIN LISPRO 100 UNIT/ML SUBCUT SCH ×4 (00:23→18:02)
[2020-05-20] MEDS: MEROPENEM 500 MG in SODIUM CHLORIDE 0.9% 100 ML IV SCH ×3 (01:30→13:50)
[2020-05-20 04:25] LABS: Basophils % 0.2 % (0.0-0.8); Eosinophils % 0.1 % (0.00-10.9); Hemoglobin 7.8 GM/DL (12.0-16.0); Immature Granulocytes % 1.2 %; Lymphocytes # 0.7 10*3/uL (1.4-4.0); Mean Corpuscular HGB Conc 28.9 GM/DL (32-36); Mean Corpuscular Volume 97.8 FL (87-102); Mean Platelet Volume 10.2 FL (9.6-12.0); Monocytes % 1.6 % (1.7-12.7); NRBC # 0.02 10*3/uL; Neutrophils % 92.9 % (38.7-73.9); Platelet Count 127 T/CUMM (130-400); Red Blood Count 2.76 MC/CUMM (3.8-5.5); Red Cell Distribution Width 19.4 % (9.3-17.3); White Blood Count 16.4 T/CUMM (4-12)
[2020-05-20 04:28] LABS: ABG Base Excess -4.9 MMOL/L (-2.5-2.5); ABG HCO3 21.9 MMOL/L (20-26); ABG Oxygen Saturation 96.7 % (95-100); ABG PCO2 48.7 MM HG (35-48); ABG PH 7.271 (7.35-7.45); ABG PO2 100.4 MM HG (80-95); ABG TCO2 23.4 MMOL/L (23-27); Allen Test Positive; Pt O2 Delivery Device Ventilator
[2020-05-20 04:41] LABS: Calcium 7.7 MG/DL (8.5-10.1)
[2020-05-20 04:54] LABS: Band Neutrophils 3 % (0-10); Hypochromasia 1+; Lymphocytes 5 % (20-55); Polychromasia Slight; Segmented Neutrophils 91 % (50-85); Total Cells Counted 100
[2020-05-20 04:55] LABS: Anisocytosis 1+; Platelet Estimate Adequate
[2020-05-20] MEDS: VANCOMYCIN INJ 2,000 MG in SODIUM CHLORIDE 0.9% 500 ML IV SCH ×2 (05:18→16:49)
[2020-05-20] MEDS: NOREPINEPHRINE 8 MG in SODIUM CHLORIDE 0.9% 242 ML IV PRN (06:30)
[2020-05-20] MEDS ORDERED: LIDOCAINE 1%/EPI INJ 20 ML VIAL ONE (06:46)
[2020-05-20] MEDS: fentaNYL INJ 2,500 MCG in SODIUM CHLORIDE 0.9% 450 ML IV PRN ×2 (09:04→16:42)
[2020-05-20] MEDS: POTASSIUM CHLORIDE 20 MEQ/15 ML UDCUP PER TUBE SCH (09:04)
[2020-05-20] MEDS: METOPROLOL TARTRATE 25 MG TABLET NG SCH ×2 (09:04→20:22)
[2020-05-20] MEDS: ASPIRIN CHEW 81 MG TABLET PO SCH (09:05)
[2020-05-20] MEDS: NYSTATIN POWDER 15 GM BOTTLE TOP SCH ×3 (09:08→20:22)
[2020-05-20] MEDS: MENTHOL/ZINC OXIDE OINT 71 GM JAR TOP SCH ×2 (09:08→20:22)
[2020-05-20] MEDS: amLODIPine 10 MG TABLET PO SCH (09:08)
[2020-05-20] MEDS: MULTIVITAMIN LIQUID (CENTRUM) 60 ML BOTTLE PO SCH (09:08)
[2020-05-20] MEDS: POLYETHYLENE GLYCOL POWDER 17 GM PACK PO SCH (09:08)
[2020-05-20] MEDS: ASCORBIC ACID 500 MG TABLET PO SCH ×2 (09:09→20:22)
[2020-05-20] MEDS: PANTOPRAZOLE 40 MG VIAL IV SCH (09:09)
[2020-05-20] MEDS: lisinopriL 20 MG TABLET PO SCH (09:09)
[2020-05-20] MEDS: FUROSEMIDE 40 MG/4 ML VIAL IV SCH ×2 (09:10→16:48)
[2020-05-20] MEDS ORDERED: ETOMIDATE 40 MG/20 ML VIAL IV ONE (09:19)
[2020-05-20] MEDS ORDERED: SEVOFLURANE 1 UNIT/15 MINUTE INH ONE (09:19)
[2020-05-20] MEDS ORDERED: ROCURONIUM 100 MG/10 ML VIAL IV ONE (09:19)
[2020-05-20] MEDS ORDERED: propofoL 200 MG/20 ML VIAL IV ONE (09:19)
[2020-05-20] MEDS ORDERED: LIDOCAINE 2% 5 ML VIAL ONE (09:19)
[2020-05-20] MEDS: ENOXAPARIN 80 MG/0.8 ML SYRINGE SUBCUT SCH (10:01)
[2020-05-20] MEDS: AZITHROMYCIN INJ 500 MG in SODIUM CHLORIDE 0.9% 250 ML IV SCH (15:12)
[2020-05-20] MEDS: DEXAMETHASONE 4 MG/1 ML VIAL IV SCH (16:00)
[2020-05-20] MEDS ORDERED: COLISTIMETHATE 300 MG in SODIUM CHLORIDE 0.9% 100 ML IV ONE (17:00)
[2020-05-20] MEDS: SIMVASTATIN 10 MG TABLET PO SCH (20:22)
[2020-05-20] MEDS: INSULIN GLARGINE 100 UNIT/ML SUBCUT SCH (20:22)
[2020-05-21] MEDS: fentaNYL INJ 2,500 MCG in SODIUM CHLORIDE 0.9% 450 ML IV PRN ×4 (00:20→19:40)
[2020-05-21] MEDS: INSULIN LISPRO 100 UNIT/ML SUBCUT SCH ×4 (01:21→18:10)
[2020-05-21] MEDS: ENOXAPARIN 80 MG/0.8 ML SYRINGE SUBCUT SCH ×2 (01:21→11:26)
[2020-05-21] MEDS: VANCOMYCIN INJ 2,000 MG in SODIUM CHLORIDE 0.9% 500 ML IV SCH (02:40)
[2020-05-21 03:59] LABS: Allen Test Positive; Pt O2 Delivery Device Ventilator
[2020-05-21 04:00] LABS: ABG Base Excess -3.9 MMOL/L (-2.5-2.5); ABG HCO3 22.6 MMOL/L (20-26); ABG PCO2 48.2 MM HG (35-48); ABG PH 7.288 (7.35-7.45)
[2020-05-21 05:10] LABS: Basophils % 0.2 % (0.0-0.8); Eosinophils % 0.3 % (0.00-10.9); Hematocrit 25.9 VOL% (35.7-47.0); Hemoglobin 7.4 GM/DL (12.0-16.0); Lymphocytes # 0.3 10*3/uL (1.4-4.0); Lymphocytes % 3.1 % (21.3-54.2); Mean Corpuscular HGB Conc 28.6 GM/DL (32-36); Mean Corpuscular Volume 98.5 FL (87-102); Mean Platelet Volume 10.1 FL (9.6-12.0); Monocytes % 0.9 % (1.7-12.7); NRBC # 0.02 10*3/uL; Neutrophils % 94.5 % (38.7-73.9); Red Blood Count 2.63 MC/CUMM (3.8-5.5); Red Cell Distribution Width 19.6 % (9.3-17.3); White Blood Count 9.6 T/CUMM (4-12)
[2020-05-21 05:12] LABS: Platelet Count 79 T/CUMM (130-400)
[2020-05-21 05:38] LABS: Calcium 7.5 MG/DL (8.5-10.1); Osmolality,Calculated 308.4 MOS/KG (273-304)
[2020-05-21 05:41] LABS: Band Neutrophils 4 % (0-10); Eosinophils 1 % (0-10); Hypochromasia 1+; Lymphocytes 5 % (20-55); Microcytosis 1+; Platelet Estimate Decreased; Segmented Neutrophils 89 % (50-85); Total Cells Counted 100
[2020-05-21] MEDS: COLISTIMETHATE 150 MG in SODIUM CHLORIDE 0.9% 100 ML IV SCH ×2 (05:43→18:01)
[2020-05-21] MEDS: MORPHINE 4 MG/1 ML VIAL IV PRN ×4 (06:12→22:25)
[2020-05-21] MEDS: ASCORBIC ACID 500 MG TABLET PO SCH ×2 (08:10→22:21)
[2020-05-21] MEDS: METOPROLOL TARTRATE 25 MG TABLET NG SCH (08:10)
[2020-05-21] MEDS: ASPIRIN CHEW 81 MG TABLET PO SCH (08:10)
[2020-05-21] MEDS: POTASSIUM CHLORIDE 20 MEQ/15 ML UDCUP PER TUBE SCH (08:10)
[2020-05-21] MEDS: FUROSEMIDE 40 MG/4 ML VIAL IV SCH (08:11)
[2020-05-21] MEDS: PANTOPRAZOLE 40 MG VIAL IV SCH (08:11)
[2020-05-21] MEDS: MULTIVITAMIN LIQUID (CENTRUM) 60 ML BOTTLE PO SCH (08:12)
[2020-05-21] MEDS: MENTHOL/ZINC OXIDE OINT 71 GM JAR TOP SCH ×2 (08:12→22:20)
[2020-05-21] MEDS: NYSTATIN POWDER 15 GM BOTTLE TOP SCH ×3 (08:12→22:21)
[2020-05-21] MEDS: POLYETHYLENE GLYCOL POWDER 17 GM PACK PO SCH (08:12)
[2020-05-21] MEDS: lisinopriL 20 MG TABLET PO SCH (08:12)
[2020-05-21] MEDS: amLODIPine 10 MG TABLET PO SCH (08:12)
[2020-05-21] MEDS: ACETAMINOPHEN 325 MG TABLET PO PRN ×2 (12:40→22:27)
[2020-05-21] MEDS: DIGOXIN 0.5 MG/2 ML AMP IV SCH (12:56)
[2020-05-21] MEDS: AZITHROMYCIN INJ 500 MG in SODIUM CHLORIDE 0.9% 250 ML IV SCH (12:57)
[2020-05-21] MEDS: NOREPINEPHRINE 8 MG in SODIUM CHLORIDE 0.9% 242 ML IV PRN ×3 (13:14→22:15)
[2020-05-21] MEDS ORDERED: SODIUM CHLORIDE 0.9% 1,000 ML IV ONE ×2 (16:31→18:03)
[2020-05-21] MEDS: IBUPROFEN 100 MG/5 ML UDCUP PO PRN (16:35)
[2020-05-21] MEDS ORDERED: SODIUM CHLORIDE 0.9% 500 ML IV ONE (16:38)
[2020-05-21] MEDS: PHENYLEPHRINE DRIP 40 MG/250 ML PREMIX IV PRN (19:22)
[2020-05-21] MEDS: INSULIN GLARGINE 100 UNIT/ML SUBCUT SCH (22:21)
[2020-05-21] MEDS: SIMVASTATIN 10 MG TABLET PO SCH (22:22)
[2020-05-22] MEDS: IBUPROFEN 100 MG/5 ML UDCUP PO PRN ×2 (01:21→12:55)
[2020-05-22] MEDS: fentaNYL INJ 2,500 MCG in SODIUM CHLORIDE 0.9% 450 ML IV PRN ×3 (01:24→18:54)
[2020-05-22] MEDS: INSULIN LISPRO 100 UNIT/ML SUBCUT SCH ×4 (01:30→18:55)
[2020-05-22] MEDS: ENOXAPARIN 80 MG/0.8 ML SYRINGE SUBCUT SCH ×2 (01:32→11:20)
[2020-05-22] MEDS: NOREPINEPHRINE 8 MG in SODIUM CHLORIDE 0.9% 242 ML IV PRN (02:03)
[2020-05-22] MEDS: PHENYLEPHRINE DRIP 40 MG/250 ML PREMIX IV PRN ×4 (02:30→08:55)
[2020-05-22 04:29] LABS: ABG HCO3 14.8 MMOL/L (20-26); ABG Oxygen Saturation 96.1 % (95-100); ABG PCO2 52.5 MM HG (35-48); ABG PO2 84.8 MM HG (80-95); ABG TCO2 16.6 MMOL/L (23-27); Allen Test Positive; Pt O2 Delivery Device Ventilator
[2020-05-22 04:42] LABS: ABG PH 7.115 (7.35-7.45)
[2020-05-22] MEDS: NOREPINEPHRINE 16 MG in SODIUM CHLORIDE 0.9% 234 ML IV PRN ×2 (04:58→11:20)
[2020-05-22] MEDS ORDERED: VASOPRESSIN 100 UNITS in SODIUM CHLORIDE 0.9% 95 ML IV SCH (05:00)
[2020-05-22 05:44] VITALS: BP 116/54
[2020-05-22] MEDS: COLISTIMETHATE 150 MG in SODIUM CHLORIDE 0.9% 100 ML IV SCH (05:55)
[2020-05-22 06:18] LABS: Basophils # 0.1 10*3/uL (0.0-0.2); Basophils % 0.3 % (0.0-0.8); Eosinophils # 0.2 10*3/uL (0.0-0.87); Eosinophils % 1.5 % (0.00-10.9); Hematocrit 26.7 VOL% (35.7-47.0); Hemoglobin 7.6 GM/DL (12.0-16.0); Immature Granulocytes % 1.1 %; Immature Granulocytes Absolute 0.17 #; Lymphocytes # 1.2 10*3/uL (1.4-4.0); Lymphocytes % 7.5 % (21.3-54.2); Mean Corpuscular HGB Conc 28.5 GM/DL (32-36); Mean Corpuscular Volume 101.1 FL (87-102); Mean Platelet Volume 11.1 FL (9.6-12.0); Monocytes % 1.2 % (1.7-12.7); NRBC # 0.13 10*3/uL; Neutrophils % 88.4 % (38.7-73.9); Red Blood Count 2.64 MC/CUMM (3.8-5.5); Red Cell Distribution Width 18.6 % (9.3-17.3); White Blood Count 15.4 T/CUMM (4-12)
[2020-05-22 06:20] LABS: Calcium 6.8 MG/DL (8.5-10.1); Osmolality,Calculated 314.6 MOS/KG (273-304)
[2020-05-22 06:24] LABS: Platelet Count 40 T/CUMM (130-400)
[2020-05-22 07:08] LABS: Band Neutrophils 2 % (0-10); Eosinophils 1 % (0-10); Lymphocytes 7 % (20-55); Metamyelocytes 1 %; Myelocytes 1 %; Segmented Neutrophils 88 % (50-85)
[2020-05-22 07:09] LABS: Hypochromasia 1+; Platelet Estimate Decreased; Polychromasia Few; Total Cells Counted 100
[2020-05-22] MEDS ORDERED: SODIUM BICARBONATE 50 MEQ/50 ML VIAL IV ONE ×3 (07:37→13:05)
[2020-05-22] MEDS: POLYETHYLENE GLYCOL POWDER 17 GM PACK PO SCH (08:09)
[2020-05-22] MEDS: DIGOXIN 0.5 MG/2 ML AMP IV SCH (08:09)
[2020-05-22] MEDS: POTASSIUM CHLORIDE 20 MEQ/15 ML UDCUP PER TUBE SCH (08:09)
[2020-05-22] MEDS: MULTIVITAMIN LIQUID (CENTRUM) 60 ML BOTTLE PO SCH (08:09)
[2020-05-22] MEDS: MENTHOL/ZINC OXIDE OINT 71 GM JAR TOP SCH (08:10)
[2020-05-22] MEDS: PANTOPRAZOLE 40 MG VIAL IV SCH (08:10)
[2020-05-22] MEDS: ASPIRIN CHEW 81 MG TABLET PO SCH (08:11)
[2020-05-22] MEDS: ACETAMINOPHEN 325 MG TABLET PO PRN (08:11)
[2020-05-22] MEDS: ASCORBIC ACID 500 MG TABLET PO SCH (08:12)
[2020-05-22] MEDS: NYSTATIN POWDER 15 GM BOTTLE TOP SCH ×2 (08:12→15:37)
[2020-05-22] MEDS ORDERED: SODIUM BICARB INJ 100 MEQ in DEXTROSE 5% 1,000 ML IV SCH (08:30)
[2020-05-22] MEDS ORDERED: PHENYLEPHRINE INJ 160 MG in SODIUM CHLORIDE 0.9% 234 ML IV PRN (10:14)
[2020-05-22] MEDS ORDERED: CALCIUM CHLORIDE 1,000 MG/10 ML SYRINGE IV ONE (10:42)
[2020-05-22] MEDS ORDERED: ALBUMIN 25% 50 GM in PREMIX 1 EACH IV ONE (10:45)
[2020-05-22 12:10] LABS: ABG Base Excess -13.2 MMOL/L (-2.5-2.5); ABG Oxygen Saturation 95.1 % (95-100); ABG PCO2 55.6 MM HG (35-48); ABG TCO2 17.7 MMOL/L (23-27); Pt O2 Delivery Device Ventilator
[2020-05-22 12:13] LABS: ABG PH 7.078 (7.35-7.45)
[2020-05-22] MEDS: MORPHINE 4 MG/1 ML VIAL IV PRN (16:09)
[2020-05-22] MEDS ORDERED: COLISTIMETHATE IV SCH (18:00)
[2020-05-22] MEDS ORDERED: SODIUM CHLORIDE 0.9% IV SCH (18:00)
[2020-05-22] MEDS ORDERED: ALBUMIN 25% 25 GM in PREMIX 1 EACH IV SCH (23:00)
== END 2020-05-22 18:03 | disposition expired | DRG 4 ==
LOC: EDUNIT# → EDBD → N.ED 09:12 → SUATTDRO 11:07 → N.EDINP 11:07 → N.2W 12:31 → N.2E 04-27 14:05 → N.CC 05-03 04:47
PROVIDERS: ADMIT Internal Medicine; ATTEND Family Medicine